=== PATIENT | female | born 1950 | race Caucasian/White ===

== ENCOUNTER 2018-03-31 11:14 | Outpatient (CLI) | payer MEDICARE, SELFPAY ==
--- NOTE | 2018-03-31 11:21 | DI.RAD.S_ITS ---
PROCEDURE: PAIN L INTERLAMINAR/CAUDAL INJ INDICATIONS: Spondylosis without myelopathy or radiculopathy, lumbosacral FINDINGS: Fluoroscopic spot filming was performed to verify placement of spinal needles at the left L5-S1 level(s), as labeled on the films. Appropriate location(s) of the needle tip(s) was confirmed by injection of iodinated contrast. Dictated by: Armando Martin M.D. on 03/31/2018 at 14:31 Approved by: Armando Martin M.D. on 03/31/2018 at 14:34
--- NOTE | 2018-03-31 11:21 | DI.RAD.S_ITS ---
PROCEDURE: XR LUMBAR SPINE MIN 4V INDICATIONS: SPONDYLOSIS WITHOUT MYELOPATHY OR RADICULOPATHY TECHNIQUE: 5 views of the lumbar spine were acquired. COMPARISON: None. FINDINGS: Bones: 5 nonrib-bearing vertebrae are present. There is mild levoscoliosis centered at L2-3 level. Grade 1 retrolisthesis is seen at L2-3 and L3-4 levels. There is also grade one anterolisthesis of L5 on S1. No vertebral body compression fractures. No suspicious bony lesions. Degenerative endplate changes throughout lumbar spine is seen with bilateral facet arthrosis at L4-5 and L5-S1 levels. Soft tissues: Overlying bowel gas pattern is normal. No suspicious soft tissue calcifications. Oblique images: No definite pars interarticularis defect is seen. No significant neural foramina narrowing. IMPRESSION: Degenerative disc disease throughout lumbar spine with likely degenerative spondylolisthesis at L2-3, L3-4 and L5-S1 levels. No definite pars interarticularis defect. No acute compression fracture. Dictated by: Balwinder Darnell M.D. on 03/31/2018 at 14:17 Approved by: Balwinder Darnell M.D. on 03/31/2018 at 14:19
[2018-03-31 11:39] VITALS: BP 134/90; PULSE 72; RESP 18; TEMP 37.1; O2SAT 97
[2018-03-31 12:09] VITALS: BP 146/90; PULSE 74; RESP 18; O2SAT 96
[2018-03-31 12:13] VITALS: BP 152/84; PULSE 72; RESP 18; O2SAT 96
[2018-03-31] MEDS: BUPIVACAINE 0.25% (PF) VIAL 2 ML INJ (12:15)
[2018-03-31] MEDS: DEXAMETHASONE 10 MG/ML VIAL 20 MG INJ (12:16)
[2018-03-31] MEDS: IOPAMIDOL 15 ML VIAL 3 ML INJ (12:16)
[2018-03-31] MEDS: methylPREDNISolone acetate 80 MG/ML VIAL INJ (12:16)
--- NOTE | 2018-03-31 12:18 | PC.NURSE ---
pt being assisted off table and to post proc area in stable condition. no sedation meds given
--- NOTE | 2018-03-31 12:20 | P.PCN_ITS ---
Procedures Date/Time Date of procedure: 03/31/18 Time of procedure: 12:19 General Procedure description: PROVIDER: Wei Yan DO Operative Note PREOP DIAGNOSIS 1. HNP WITH RADICULAR FEATURES, 2. MULTILEVEL CENTRAL STENOSIS, POST OP DIAGNOSIS 1. HNP WITH RADICULAR FEATURES, 2. MULTILEVEL CENTRAL STENOSIS, PROCEDURES 1. FLUORSCOPICALLY GUIDED CONTRAST CONTROLLED INTERLAMINAR EPIDURAL STEROID INJECTION - L5/S1 PHYSICIAN: Wei Yan DO INDICATIONS Ursula is referred by for treatment of Bilateral Foraminal Stenosis L>R LE symptoms. FINDINGS Multilevel Central Spinal Stenosis with Nerve Root Compression DESCRIPTION OF PROCEDURE Fluoroscopically guided, contrast-controlled L5/S1 translaminar epidural steroid injection. Following denial of allergy and review of potential side effects and complications, including, but not necessarily limited to, infection, allergic reaction, local tissue breakdown, temporary as well as permanent nerve injury, paralysis, stroke and possible , the patient indicated that the patient understood and agreed to proceed. An informed consent document was signed by the patient, witnessed by a nurse, and placed in the patient's chart. Additionally, other treatment options including modalities, medications, and physical therapy were reviewed with the patient. After review of previous anaesthesic history and IV conscious sedation the patient was deemed safe to proceed with todays procedure with IV conscious sedation as ASA class II designation. Safety time-out was performed to confirm patient ID, procedure to be performed and site of procedure. IV sedation was deemed unnecessary and thus not administered by the RN after DO order, the patient remained responsive to all verbal commands. In the prone position, following sterile prep and drape of the lumbar region, the L5/S1 translaminar space was identified fluoroscopically. The skin was anesthetized via a 25-gauge, 1.5-inch needle with 1% lidocaine solution. At this point, a 22-gauge short bevel spinal needle was atraumatically introduced and advanced under fluoroscopic guidance into the region of the L5/S1 translaminar space. Depth was confirmed on lateral view. Radiological data, including multiple fluoroscopic views of the lumbar spine, reveal a spinal needle at the L5/S1 translaminar space. Lateral views then show placement of the needle in the epidural space. Subsequent views show contrast material flowing superiorly and inferiorly in the epidural space. No vascular or intrathecal uptake is observed. At this point, using loss of resistance technique with saline and air, the epidural space was entered. This was confirmed following negative aspiration with injection of approximately 1.5 cc of Isovue 200, showing excellent epidural flow without vascular or intrathecal uptake. At this point, 1 cc of 1 % lidocaine solution combined with 3 cc or 20 mg of dexamethasone and 80mg Depo medrol was injected without incident. The patent tolerated the procedure without signs of symptoms of complications prior to transfer to the recovery area for further monitoring. The patient was then transferred to the recovery area where they were observed for an appropriate period of time after the injection. The patient reported a VAS score of 6 prior to the procedure and a post-procedure VAS of 0. Total Fluoroscopy Time: 11.8 seconds Total Conscious Sedation Time: 24min POST OP INSTRUCTIONS The patient was provided a Pain Log to continue to record their response to the target-specific procedure prior to follow-up visit with their referring physician. Additionally, specific post-injection care instructions and a contact number to our office were provided if concerns arise regarding possible complications associated with the procedure are suspected. Wei Yna, DO
[2018-03-31 12:25] VITALS: BP 142/78; PULSE 72; RESP 20; O2SAT 96
== END 2018-03-31 12:48 ==
LOC: RAD 11:18
PROVIDERS: PCP Family Medicine; Visit Provider Physical Medicine & Rehabilitation
DX: M51.17 Intervertebral disc disorders with radiculopathy, lumbosacral region (principal); M51.16 Intervertebral disc disorders with radiculopathy, lumbar region; M48.07 Spinal stenosis, lumbosacral region; M48.062 Spinal stenosis, lumbar region with neurogenic claudication; M47.27 Other spondylosis with radiculopathy, lumbosacral region; M43.17 Spondylolisthesis, lumbosacral region
CPT/HCPCS: 62323; 72110; J1040; J1100; J2250

== ENCOUNTER 2018-04-07 07:20 | Outpatient (CLI) | payer MEDICARE, SELFPAY ==
[2018-04-07] VITALS (10 sets, daily range): BP systolic 104–131; BP diastolic 63–92; PULSE 55–85; RESP 16–20; TEMP 37.6; O2SAT 95–99
--- NOTE | 2018-04-07 07:21 | DI.RAD.S_ITS ---
PROCEDURE: PAIN INJECT BLOOD PATCH COMPARISON: Located Within [facility], CR, XR LUMBAR SPINE MIN 4V, 03/31/2018, 11:19. INDICATIONS: Spinal Headache FINDINGS: Needle tip localization ecti intralaminar notch level leftward of midline, L5-S1. IMPRESSION: Successful needle tip localization for blood patch procedure left paramedian L5-S1 intralaminar notch dorsally. Dictated by: Richar Briseno M.D. on 04/07/2018 at 12:59 Approved by: Richar Briseno M.D. on 04/07/2018 at 13:00
[2018-04-07] MEDS: MIDAZOLAM 5 MG/5 ML VIAL IV (08:02)
[2018-04-07] MEDS: IOPAMIDOL 15 ML VIAL 3 ML INJ (08:07)
--- NOTE | 2018-04-07 08:20 | PC.NURSE ---
PT BEING TRANSPORTED LYING ON BACK TO POST PROC AREA FOR FURTHER OBS. IN STABLE CONDITION
--- NOTE | 2018-04-07 08:21 | PM.PROC.1 ---
Procedures Date/Time Date of procedure: 04/07/18 Time of procedure: 08:21 General Procedure description: PROVIDER: Wei Yan DO Operative Note PREOP DIAGNOSIS 1. SPINAL HEADACHE 2. MULTILEVEL CENTRAL STENOSIS POST OP DIAGNOSIS 1. SPINAL HEADACHE 2. MULTILEVEL CENTRAL STENOSIS PROCEDURES 1. FLUORSCOPICALLY GUIDED CONTRAST CONTROLLED EPIDURAL BLOOD PATCH PHYSICIAN: Wei Yan DO INDICATIONS Ursula is referred by Dr. Sam for treatment of Spinal Headache with underlying Bilateral Foraminal Stenosis L>R LE symptoms. FINDINGS Spinal Headache Multilevel Central Spinal Stenosis with Nerve Root Compression DESCRIPTION OF PROCEDURE Fluoroscopically guided, contrast-controlled L5/S1 Epidural Blood Patch Following denial of allergy and review of potential side effects and complications, including, but not necessarily limited to, infection, allergic reaction, local tissue breakdown, temporary as well as permanent nerve injury, paralysis, stroke and possible , the patient indicated that the patient understood and agreed to proceed. An informed consent document was signed by the patient, witnessed by a nurse, and placed in the patient's chart. Additionally, other treatment options including modalities, medications, and physical therapy were reviewed with the patient. After review of previous anaesthesic history and IV conscious sedation the patient was deemed safe to proceed with todays procedure with IV conscious sedation as ASA class II designation. Safety time-out was performed to confirm patient ID, procedure to be performed and site of procedure. IV sedation was accomplished with a combination of 4mg of Versed administered by the RN after DO order, titrated to patient comfort during the course of the procedure while the patient remained responsive to all verbal commands. In the prone position, following sterile prep and drape of the lumbar region, the L5/S1 translaminar space was identified fluoroscopically. The skin was anesthetized via a 25-gauge, 1.5-inch needle with 1% lidocaine solution. At this point, a 22-gauge short bevel spinal needle was atraumatically introduced and advanced under fluoroscopic guidance into the region of the L5/S1 translaminar space. Depth was confirmed on lateral view. Radiological data, including multiple fluoroscopic views of the lumbar spine, reveal a spinal needle at the L5/S1 translaminar space. Lateral views then show placement of the needle in the epidural space. Subsequent views show contrast material flowing superiorly and inferiorly in the epidural space. No vascular or intrathecal uptake is observed. At this point, using loss of resistance technique with saline and air, the epidural space was entered. This was confirmed following negative aspiration with injection of approximately 0.5cc of Isovue 200, showing excellent epidural flow without vascular or intrathecal uptake. At this point, 20cc of the patients blood was obtained from the IV site. This was then slowly injected into the epidural space while monitoring the patients neurological state. The patent tolerated the procedure without signs of symptoms of complications prior to transfer to the recovery area on a bed lying supine flat for further monitoring. The patient was then transferred to the recovery area where they were observed for an appropriate period of time after the injection. The patient reported a VAS score of 6 prior to the procedure and a post-procedure VAS of 2. Total Fluoroscopy Time: 11.8 seconds Total Conscious Sedation Time: 24min POST OP INSTRUCTIONS The patient was provided a Pain Log to continue to record their response to the target-specific procedure prior to follow-up visit with their referring physician. Additionally, specific post-injection care instructions and a contact number to our office were provided if concerns arise regarding possible complications associated with the procedure are suspected. Wei Yan DO Complications: none
--- NOTE | 2018-04-07 08:28 | PC.NURSE ---
received pt from Lisa GARCIA post blood patch procedure, pt verbalizing on command, able to answer my questions appropriately, her eyes are closed, resumed monitoring.
--- NOTE | 2018-04-07 09:03 | PC.NURSE ---
got pt to sit upright, she still has a headache and now she has a back ache as well. she is alert and needs met.
== END 2018-04-07 09:35 ==
LOC: RAD 07:21
PROVIDERS: PCP Family Medicine; Visit Provider Physical Medicine & Rehabilitation
DX: G97.1 Other reaction to spinal and lumbar puncture (principal); M48.07 Spinal stenosis, lumbosacral region; M48.061 Spinal stenosis, lumbar region without neurogenic claudication; M54.17 Radiculopathy, lumbosacral region
CPT/HCPCS: 62273; 77003; 99152; J2250

== ENCOUNTER 2024-03-21 09:44 | Inpatient (IN) | payer MEDICARE, SELFPAY ==
[2024-03-15 13:37] VITALS: BMI 30.8
[2024-03-21] VITALS (19 sets, daily range): BP systolic 98–188; BP diastolic 52–111; PULSE 63–97; RESP 6–19; TEMP 36.2–37; O2SAT 92–100; BMI 34.0
[2024-03-21] MEDS: LACTATED RINGERS 1,000 ML 42 ML IV ×2 (10:53→15:22)
--- NOTE | 2024-03-21 11:59 | PM.PREOP ---
Pre-operative Note Interval Note History & Physical reviewed/Exam performed by Physician: Yes Changes to H&P: No
[2024-03-21] MEDS: CEFAZOLIN 2 GM/100 ML PREMIX 100 ML IV ×2 (12:25→20:33)
--- NOTE | 2024-03-21 12:47 | SUR.OPER ---
Prone on spine table, head in foam head support, padded chest and pelvic supports, gel pad at knees, lower legs supported by pillows; nipples, genitalia and toes free of pressure, arms secured on foam padded arm boards at <90 degrees abduction. Tape over blanket at thigh secured to table.
[2024-03-21] MEDS: BUPIVACAINE LIPOSOME 266 MG/20 ML VIAL INJ (12:51)
[2024-03-21] MEDS: BUPIVACAINE 0.25% (PF) 60 ML, EPINEPHrine 0.15 MG INJ (12:52)
--- NOTE | 2024-03-21 16:06 | DI.RAD.S_ITS ---
PROCEDURE: XR LUMBAR SPINE 2-3V INDICATIONS: L4-5, L5-S1 TECHNIQUE: 2 intraoperative fluoroscopic views of the lumbar spine were acquired. COMPARISON: None. FINDINGS: Intraoperative fluoroscopic images shows posterior fusion at L4 through S1 levels with intervertebral spacer placement at L4-5 and L5-S1 levels. IMPRESSION: Fluoro guidance was provided intraoperatively for L4-5 and L5-S1 TLIF performed by ordering physician. Dictated by: Balwinder Darnell M.D. on 03/21/2024 at 16:14 Approved by: Balwinder Darnell M.D. on 03/21/2024 at 16:21
--- NOTE | 2024-03-21 16:16 | PM.OP.1 ---
Operative Date/Time/Diagnoses Date of procedure: 03/21/24 Time of procedure: 12:45 Pre-op diagnosis: 1. L4-5, L5-S1 spondylolisthesis 2. Lumbar spinal stenosis with radiculopathy with history of laminectomies Post-op diagnosis: same Procedure & Clinicians Procedure: 1. L4-5, L5-S1 Postero-lateral and posterior interbody fusion 2. L4-5, L5-S1 interbody cage placement. 3. L4-5, L5-S1 decompressive laminectomy with bilateral facetecomies 4. L4-5, L5-S1 Posterior segmental instrumentation 5. [place] of bone marrow from iliac crest 6. Utilization of microsurgical technique and operating microscope 7. Utilization of robotic assisted navigation Same procedure as scheduled: Yes Indications: Patient has been having chronic back pain and worsening lumbar radiculopathy. Patient had history of lumbar laminectomies at L4-5 L5-S1 level more than 10 years ago. Patient has L4-5 L5-S1 foraminal stenosis and anterolisthesis correlating with the patient's symptoms. Patient failed multiple conservative management with worsening pain weakness and numbness in her lower extremity. Patient has been having difficulty performing activity of daily living. After discussing risks benefits of treatment options, patient elected proceed with surgery. Surgeon: John Olivarez Subway Car Repairer: Nelsy David Click Yes if Unassisted: No Anesthesia Type: General Operative Notes Closure Type: primary Specimen(s): none sent Prosthetic devices, grafts, tissues, transplants, or devices: Globus CREO MIS screws, Rise cages Applied: catheter Estimated Blood Loss (mL): 200 Blood products transfused: none Procedure in detail: Patient was seen in the preoperative area. Risks and benefits of the surgery was discussed with the patient. Informed consent was obtained from the patient and placed in the chart. Surgical site was marked. Patient was taken to the operative room. General anesthesia was administered. Prophylactic antibiotic was given to the patient less than 30 min before the incision was made. Patient was placed into a prone position on the Jimi table. Patient's back was then prepped and draped in the sterile fashion. Time-out was performed at this time. After patient was prepped and draped, patient's PSIS was palpated and marked bilaterally. Small 1 cm incision was made over the PSIS for placement of the reference probes. Two trocar was placed into the PSIS 1 on each side. The reference probe was attached to the trocar of the reference apparatus. At this time the C-arm imaging was used to confirm AP and lateral of L4-L5, L5-S1 vertebrae and merged the C-arm imaging using the [employer] robotic navigation system with the CT of the lumbar spine. After successful merging was completed and confirmed, skin marker was used to jennyfer out the skin incision using the [employer] robotic arm. Bilateral incision was made at this time. Pre templated trajectory was used and guided using the [employer] robotic navigation system for bilateral L4, L5, S1 pedicle screw placement. This was done by using the robotic arm to guide the high-speed bur to make a cortical entry point. Next a drill was placed also using the robotic arm and guided using the navigation system drilling partially through bilateral L4, L5 and S1 pedicles. Next L4, L5, S1 pedicle screws it was pre templated and measured was placed onto the power snaker tractor driver and inserted into the pedicles bilaterally. After all 6 screws were placed C-arm imaging was taken of both AP and lateral to confirm the placement. Excellent placement of the screws were confirmed and a matched precisely with the pre planned screw placement using the navigation system. MARs retractor was inserted using [employer] guidence. Globus MARS retractors was placed inside the incision and docked onto the L4 and L5 lamina. Using microsurgical technique and operating microscope, a L4, L5 laminectomy and L4-5, L5-S1 facetectomy was performed using a Kerrison rongeur. The laminectomy and facetectomy was performed in order to decompress patient's cauda equina as well as the nerve roots exiting at the L4-5, L5-S1 level. Patient was found have severe lateral recess and neural foramen stenosis which was fully decompressed after the laminectomy facetectomy. There was significant amount of epidural scarring from a previous laminectomies at both levels. The scar tissue was carefully resected along with the laminectomy and facetectomy during the process of decompression. More than 75% of the facets were removed during the process of decompression rendering L4-5, L5-S1 level grossly unstable and required a fusion procedure at the same time. The disc space at L4-5, L5-S1 was identified, and a total diskectomy was performed at L4-5, L5-S1 level. The endplates were decorticated using a rasp and shaver. The total diskectomy and decortication was performed at L4-5, L5-S1 level in order to to accomplish a L4-5, L5-S1 fusion. The local bone from the laminectomy and facetectomy was saved for local bone grafting. After the total diskectomy and decortication was completed, Viacel bone graft material was combined with local bone that was harvested earlier. At this time, a separate skin is incision was made over the iliac crest. A Jamshidi needle was inserted into the iliac crest through a separate skin incision on the right. 5 cc of bone marrow aspiration was obtained through the separate skin incision using a Jamshidi needle from the iliac crest. The bone marrow aspiration was combined with local bone and the Viacel bone grafting material. The bone grafting material was placed into the L4-5, L5-S1 interbody space along with a expandable cage. The cage was expanded to its maximum height using the torque limiting screwdriver. The disc preparation as well as the cage insertion were also performed under navigation guidance. After the cage was placed, AP and lateral C-arm imaging was taken to confirm placement of the cage and excellent position was confirmed. Globus MARS retractor was inserted and docked onto the L4-5, L5-S1 posterolateral gutter on the right side. Using the power drill, posterior-lateral decortication was performed at L4-5, L5-S1 level until bleeding cortical bone was identified. The remaining bone grafting material was placed into the L4-5, L5-S1 posterior lateral gutter he order to accomplish posterolateral fusion at the L4-5, L5-S1 level. At this time the tulips were attached to the L4, L5, S1 pedicle screw shanks. After measuring the length of the rods, they were inserted into the tulips of the pedicle screws and locked in place using locking caps and torque limiting screwdriver bilaterally. Total 6 caps and 2 titanium rods was used in order to complete the posterior instrumentation construct. After all the hardware was placed, and confirmed with AP and lateral C-arm imaging, the wound was then irrigated with sterile normal saline and packed with Ray-Yaquelin gauze for 3 min to accomplish hemostasis. After the gauze was removed the deep fascia was closed with #1 Vicryl suture. The subcutaneous layer was closed with 2-0 Vicryl. The skin was closed with skin brayan. Patient tolerated the procedure well. There were no complications. Neuro monitoring system was used to monitor patient's neurologic status throughout entire procedure. There was no disturbance of the neural monitoring signals throughout the case. The Operation could not have been safely performed without compromising the technical result or length of the procedure, without the assistance of a skilled instructor adjunct surgical technician. The instructor adjunct surgical technician was medically necessary for proper positioning, retraction and manipulation of instruments, proper exposure, surgical preparation, and manipulation of tissue. Complications: none Post-operative Condition: stable Disposition: PACU Plan for aftercare: Admit to inpatient hospital
[2024-03-21] MEDS: HYDROMORPHONE 1 MG INJ IV ×2 (16:43→17:03)
[2024-03-21] MEDS: OXYCODONE IR 5 MG TABLET PO (16:48)
[2024-03-21] MEDS: hydrOXYzine 50 MG/ML INJ 25 MG IM (16:54)
[2024-03-21] MEDS: LACTATED RINGERS 1,000 ML 125 ML IV (20:35)
[2024-03-22 00:56] VITALS: BMI 34.0
[2024-03-22 01:40] VITALS: BP 163/97; PULSE 104; TEMP 37.1; O2SAT 97
[2024-03-22] MEDS: OXYCODONE IR 5 MG TABLET PO ×3 (02:17→18:04)
[2024-03-22] MEDS: ACETAMINOPHEN 325 MG TABLET 650 MG PO ×3 (03:13→18:05)
[2024-03-22] MEDS: HYDROMORPHONE 0.5 MG INJ IV (03:19)
[2024-03-22] MEDS: LACTATED RINGERS 1,000 ML 125 ML IV (05:17)
[2024-03-22] MEDS: PANTOPRAZOLE DR 20 MG TABLET PO (05:46)
[2024-03-22] MEDS: CEFAZOLIN 2 GM/100 ML PREMIX 100 ML IV (05:47)
[2024-03-22 06:17] LABS: Hematocrit 31.4 % (36-46); Hemoglobin 10.6 g/dL (12.0-16.0)
[2024-03-22] MEDS: OXYCODONE IR 10 MG TABLET PO ×2 (06:41→10:45)
--- NOTE | 2024-03-22 07:44 | PM.PNPO.1 ---
Subjective Subjective Date Patient Seen: 03/22/24 Time Patient Seen: 07:30 Interval history: She had difficulty having her pain under control. ? I have a low pain threshold? acquired IV medications conjunction with the oxycodone. He is not yet or physical therapy. Denies any new numbness or tingling down her legs. Pain is primarily at the surgical site. Exam Vital Signs (past 8 hours): - 03/22/24 01:40 Temperature 98.7 F Pulse Rate 104 H Blood Pressure 163/97 H Pulse Oximetry 97 Oxygen Flow Rate 2 Fraction of Inspired Oxygen 32 SaO2/FiO2 Ratio 303 Oxygen Delivery Method Nasal Cannula Oxygen Flow Rate 2 Narrative Exam Narrative: 5/5 PF, DF, EHL on bilateral lower extremities. Sensation to light touch intact throughout BLE, calves soft and compressible. Dressing clean dry and intact. SCDs on a functioning Resp Effort & Inspection: normal respiratory effort and able to speak in complete sentences Objective Labs 03/22/24 05:56 Labs: Laboratory Results - last 24 hr 03/22/24 05:56 Hgb 10.6 L Hct 31.4 L PFSH Medical History (Updated 03/15/24 @ 14:25 by Nahed Henriquez RN) Diabetes Depression HTN (hypertension) GERD (gastroesophageal reflux disease) Surgical History (Updated 03/15/24 @ 14:42 by Nahed Henriquez RN) H/O cataract extraction H/O gastric bypass H/O: hysterectomy H/O laminectomy Social History household members: spouse Smoking Status: Never smoker alcohol intake: current Assessment & Plan Post-op Postoperative Procedures: Procedures Operation Date: 03/21/24 11:45 Actual Procedure Side Surgeon p L4-5, L5-S1 TLIF with posterior instrumentation-Robot John Olivarez MD Postoperative day: 1 Postoperative plan: routine post-op care and ambulate Postoperative plan narrative: Multimodal pain control. Ambulate with physical therapy with assistive devices. SCDs on when resting in bed to prevent DVT. Patient plans on discharging to SNF due to no support at home. Time Spent With Patient Time with patient: 15-24 minutes Quality VTE Deep Vein Thrombosis/Pulmonary Embolism Present on Admission: No
[2024-03-22 09:01] VITALS: O2SAT 97
--- NOTE | 2024-03-22 09:30 | PT.IIE ---
Current Diagnoses Spondylolisthesis, lumbar region (03/21/24) Spinal stenosis, lumbar region without neurogenic claudication (03/21/24) Surgery Performed Operation Date: 03/21/24 11:45 Actual Procedures p L4-5, L5-S1 TLIF with posterior instrumentation-Robot - John Olivarez MD Surgical History (Last Updated 03/15/24 @ 14:42 by Nahed Henriquez, RN) H/O cataract extraction H/O gastric bypass H/O laminectomy H/O: hysterectomy Medical History (Last Updated 03/15/24 @ 14:25 by Nahed Henriquez, RN) Depression Diabetes GERD (gastroesophageal reflux disease) HTN (hypertension) Physical Therapy Inpatient Evaluation/Re-Eval M1 PT/OT-IP Prior Functional Status Start: 03/22/24 12:02 Freq: NEEDED Status: Active Protocol: Document 03/22/24 09:30 AB (Rec: 03/22/24 12:17 AB [id number]) Medical Review Prior Functional Status Medical History Reviewed Yes Communication able to make needs known Mobility and Gait pt stated that she was modified independent with all mobilities and ambulation without AD Social History Household Members spouse Living Arrangements House Number of Floors (Floors) Two Floors Number of Stairs To Enter/Railing? pt stays on the main level of the house 5 steps without rails to enter from the front; 3 steps without rails to get in from the back door Home Environment Standard Height Toilet,Walk in Shower Home Equipment Front Wheel Walker,Four Wheel Walker,Tub Transfer Bench, Shower Seat with Backrest,Hand Held Shower,Grab Bars In Shower Additional Social History Comment pt has a toilet safety frame spouse stated that he cannot assist pt at home M2 PT-IP Current Condition Start: 03/22/24 12:02 Freq: NEEDED Status: Active Protocol: Document 03/22/24 09:30 AB (Rec: 03/22/24 12:17 AB [id number]) Physical Therapy Current Condition Current Condition Evaluation Date 03/22/24 Treatment Diagnosis s/p L4-5, L5S1 TLIF; difficulty in walking Onset Date 03/21/24 M3 PT-IP Subjective Start: 03/22/24 12:02 Freq: NEEDED Status: Active Protocol: Document 03/22/24 09:30 AB (Rec: 03/22/24 12:17 AB [id number]) Subjective Physical Therapy Visit Type Type Initial Evaluation Visit Start Time 09:30 Visit Stop Time 10:15 Number of PHARMACY HELPER Visits 0 Physical Therapy Visit Comments Patient Comments agreeable to do PT; c/o increase back pain Therapy Pain Assessment Pain When Pain Assessed At Rest Pain Present Pain Present Pain Reported Location back Intensity 9 Scale Used 10/10 with movement Pain Behaviors Facial Grimacing,Guarding, Holding Area Pain Management Techniques Apply Cold,Modification of Treatment,Re-positioning, Timing of Activity with Medications M4 PT-IP Mobility and Gait Start: 03/22/24 12:02 Freq: NEEDED Status: Active Protocol: Document 03/22/24 09:30 AB (Rec: 03/22/24 12:17 AB [id number]) PT-Bed Mobility Assessment Rolling Type of Rolling Log Rolling Level of Assist Maximal Assistance Supine to Sit Supine to Sit Maximum Assistance Scooting Scooting to Edge of Bed Maximum Assistance PT-Transfer Assessment Sit to and From Stand Sit to and from Stand Maximum Assistance,2 Person Assistance,Use of Upper Extremities Equipment Transfer Assistive Device Gait Belt,Front Wheeled Walker Orthotic/Prosthetic Devices or Brace: No Transfers Transfer Destination Chair Transfer Technique Stand Step Pivot Transfer Ability Level of Assist Maximum Assistance,2 Person Assistance,Use of Upper Extremities Comments Mobility Comments pt supine in bed and spouse in room. obtained PLOF and home set up. spouse provided most of the info. pt with confusion. spouse stated that pt has Alzheimer's dementia. post op folder provided and reviewed with pt. educated pt and spouse regarding pt's back precautions and log roll bed mobility. pt completed log roll supine to sit max A and max cues. HOB elevated ~ 20 deg and pt used bed rail to assist. pt was able to sit on EOB CGA. completed sit to stand max A x 2 and max cues. attempted x 2 reps and pt needing to sit back on EOB with c/o increase back pain. pt with confusion and can be impulsive needing max cues with all tasks. pt completed step transfer to chair using FWW max A x 2 and max cues. max A to stabilize LLE to prevent from buckling. positioned pt on the chair. ice pack provided. call light and table placed within reach. Gait Assessment Comments Gait Comments unable at this time PT-Balance Assessment Sitting Balance and Reactions Static Sitting Balance Ability Fair Dynamic Sitting Balance Ability Poor Standing Balance and Reactions Static Standing Balance Ability Poor Dynamic Standing Balance Ability Poor Device Used FWW M5 PT-IP Objective Assessments Start: 03/22/24 12:02 Freq: NEEDED Status: Active Protocol: Document 03/22/24 09:30 AB (Rec: 03/22/24 12:17 AB [id number]) Orientation Orientation/Cognition Level of Alertness Confusional State Orientation Name Language Function Ability Hard of Hearing Safety Awareness Decreased Safety Awareness Memory Description Short Term Impaired,Mcfp Impaired Gross Range of Motion Lower Extremity ROM Assessment Within Functional Limits Strength Lower Extremity Strength Assessment Left Impaired Hip 2+/5 Knee 3-/5 Sensation Assessment Sensation Sensation Description Numbness Comments Sensation Comments B feet numbness per pt Muscle Tone Muscle Tone WNL Yes M6 PT-IP Treatment Start: 03/22/24 12:02 Freq: NEEDED Status: Active Protocol: Document 03/22/24 09:30 AB (Rec: 03/22/24 12:17 AB [id number]) Physical Therapy Treatment Education Education Provided Precautions,Post-Op Packet, Safety M7 PT-IP Assessment and Plan Start: 03/22/24 12:02 Freq: NEEDED Status: Active Protocol: Document 03/22/24 09:30 AB (Rec: 03/22/24 12:17 AB [id number]) PT Summary Assessment and Plan Potential Status of Condition at Evaluation Evolving Summary Impairments Pain,ROM,Strength,Balance, Coordination,Sensation,Tone, Cognition,Bed Mobility, Transfers,Gait,Activity Tolerance Assessment Summary pt is a 74 y/o F s/p L4-5, L5S1 TLIF POD 1. pt requiring max A x 2 for step transfer using FWW and needing max A to stabilize L knee to prevent from buckling. pt will require SNF rehab to improve overall strength and function. Goals Bed Mobility Goal Minimal Assistance Transfer Goal Minimal Assistance,Front Wheeled Walker Gait Goal Minimal Assistance,Front Wheel Walker Gait Distance 25 Other Goals improve bed mobility, transfers, ambulation using FWW SBA ~ 150 ft up/down 3 steps without rails with AD CGA Days to Meet Goals 10 Frequency of Treatment Other frequency 1-2x/day Treatment Plan Physical Therapy Treatment Plan Bed Mobility Training,Transfer Training,Gait Training, Therapeutic Exercise,Balance Retraining,Post Op Education, Discharge Planning,Hot or Cold Pack,Neuromuscular Re-ed, Coordination Retraining,Manual Therapy Precautions Lumbar Precautions Log Roll,No Twisting,Limit Bending,Lifting Restriction of 10 lbs,Gait Belt above Incisional Area Recommendations To Nursing Amount of Assist Needed Mechanical Lift Discharge Recommendations PT Discharge Recommendations SNF Rehab Transportation Needs at Discharge Wheelchair/Cabulance
[2024-03-22] MEDS: DOCUSATE 100 MG CAPSULE PO ×2 (09:55→20:15)
[2024-03-22] MEDS: DULOXETINE 30 MG CAPSULE 60 MG PO (09:55)
[2024-03-22] MEDS: LOSARTAN 50 MG TABLET PO (09:55)
[2024-03-22] MEDS: PREGABALIN 75 MG CAPSULE PO ×2 (09:55→20:16)
[2024-03-22] MEDS: hydroCHLOROthiazide 25 MG TABLET 12.5 MG PO (09:57)
--- NOTE | 2024-03-22 11:18 | OT.IP.EVAL ---
Addendum entered and electronically signed by Lindsey Kay OT 03/22/24 12:41: esign Original Note: Current Diagnoses Spondylolisthesis, lumbar region (03/21/24) Spinal stenosis, lumbar region without neurogenic claudication (03/21/24) Surgery Performed Operation Date: 03/21/24 11:45 Actual Procedures p L4-5, L5-S1 TLIF with posterior instrumentation-Robot - John Olivarez MD Past Medical History (Last Updated 03/15/24 @ 14:25 by Nahed Henriquez, RN) Depression Diabetes GERD (gastroesophageal reflux disease) HTN (hypertension) Surgical History (Last Updated 03/15/24 @ 14:42 by Nahed Henriquez, RADHA) H/O cataract extraction H/O gastric bypass H/O laminectomy H/O: hysterectomy Occupational Therapy Inpatient Evaluation/Re-Eval M1 PT/OT-IP Prior Functional Status Start: 03/22/24 12:02 Freq: NEEDED Status: Active Protocol: Document 03/22/24 12:26 [facility] (Rec: 03/22/24 12:39 [facility] [id number]) Medical Review Prior Functional Status Medical History Reviewed Yes Communication able to make needs known Mobility and Gait pt stated that she was modified independent with all mobilities and ambulation without AD Activities of Daily Living and IADL's Pt states able to do all ADL prior but had pain. Social History Household Members spouse Living Arrangements House Number of Floors (Floors) Two Floors Number of Stairs To Enter/Railing? pt stays on the main level of the house 5 steps without rails to enter from the front; 3 steps without rails to get in from the back door Home Environment Standard Height Toilet,Walk in Shower Home Equipment Front Wheel Walker,Four Wheel Walker,Tub Transfer Bench, Shower Seat with Backrest,Hand Held Shower,Grab Bars In Shower Additional Social History Comment pt has a toilet safety frame spouse stated that he cannot assist pt at home M2 OT-IP Current Condition Start: 03/22/24 12:26 Freq: Status: Active Protocol: Document 03/22/24 12:26 [facility] (Rec: 03/22/24 12:39 [facility] [id number]) Occupational Therapy Current Condition Current Condition Evaluation Date 03/22/24 Treatment Diagnosis S/P L4-5, L5-S1 TLIF Diagnosis Onset Date 03/21/24 Post Operative Precautions Lumbar Precautions Log Roll,No Twisting,Limit Bending,Lifting Restriction of 10 lbs,Gait Belt above Incisional Area M3 OT- IP Subjective and Pain Start: 03/22/24 12:26 Freq: Status: Active Protocol: Document 03/22/24 12:26 [facility] (Rec: 03/22/24 12:39 [facility] [id number]) OT- Subjective Occupational Therapy Visit Type Type Initial Evaluation Visit Start Time 10:48 Visit Stop Time 11:18 Occupational Therapy Visit Comments Patient Comments Pt wanting to get back to bed as in too much pain. Patient/Caregiver Goals To go to skilled rehab. OT Pain Assessment Pain When Pain Assessed At Rest Pain Present Pain Present Pain Reported Location back Intensity 10 M4 OT- IP ADL's Start: 03/22/24 12:26 Freq: Status: Active Protocol: Document 03/22/24 12:26 [facility] (Rec: 03/22/24 12:39 [facility] [id number]) OT [id number] Comments OT Self-Feeding Comments Not at meal time. OT ADL-Grooming Comments OT Grooming Comments Not performed. OT ADL-Oral Care Comments Oral Care Comments Not performed. OT ADL-Dressing Comments OT Dressing Comments Dependent for LB dressing at this time. OT ADL-Toileting General Evaluation Toileting Ability Total Assistance Comments OT Toileting Comments Roldan in place. OT ADL-Bathing Comments OT Bathing Comments Sponge bath more appropriate at this time. M5 OT- IP IADL's Start: 03/22/24 12:26 Freq: Status: Active Protocol: Document 03/22/24 12:26 [facility] (Rec: 03/22/24 12:39 [facility] [id number]) OT-Instrumental Activities of Daily Living Home Safety Awareness Home Safety Comments Pt has dementia per and that he assist with IADL needs. Medication Management Medication Management Caregiver Administers Money Management Money Management Caregiver Provides Assistance Meal Preparation Meal Preparation Caregiver Provides Assist Senior Network Administrator Senior Network Administrator Caregiver Provides Assist M6 OT- IP Functional Cognition Start: 03/22/24 12:26 Freq: Status: Active Protocol: Document 03/22/24 12:26 [facility] (Rec: 03/22/24 12:39 [facility] [id number]) Cognitive Factors Limiting Selfcare Function Cognitive Ability Level of Alertness Confusional State Patient Orientation Name Attention Span Ability Capable of Focused Attention, Unable to Sustain Attention Ability to Follow Commands Able to Follow One Step Commands with Increased Time, Able to Follow One Step Commands with Repetition Memory Description Short Term Impaired,Halfway Impaired Cognitive Comments Cognitive Assessment Comments Pt not able to recall her back precautions and at this time just insistent on going back to bed as in lots of pain . However able to distract pt by listening to music and taking about her dog. OT- Vision and Hearing OT- Hearing Assessment OT- Hearing Assessment WFL OT- Vision Assessment Vision Assessment Comments Pt wears glasses. M7 OT- IP Mobility and Balance Start: 03/22/24 12:26 Freq: Status: Active Protocol: Document 03/22/24 12:26 [facility] (Rec: 03/22/24 12:39 [facility] [id number]) OT- Bed Mobility Assessment Sit to Supine Sit to Supine Assist Total Assistance,2 Person Assistance OT-Transfer Assessment Transfers Transfer Ability Total Assistance,2 Person Assistance Technique Transfer Destination Bed,Chair Transfer Technique Mechanical Lift Comments Mobility Comments Use of mechanical lift back to bed. Pt has difficulty to move and lift her LLE at this time. OT- Balance Assessment Sitting Balance and Reactions Static Sitting Balance Ability Fair Dynamic Sitting Balance Ability Poor M8 OT- IP Objective Assessments Start: 03/22/24 12:26 Freq: Status: Active Protocol: Document 03/22/24 12:26 [facility] (Rec: 03/22/24 12:39 [facility] [id number]) OT Gross Range of Motion Upper Extremity Range of Motion Assessment Within Functional Limits OT Strength Upper Extremity Strength Assessment Within Functional Limits M9 OT- IP Assessment and Plan Start: 03/22/24 12:26 Freq: Status: Active Protocol: Document 03/22/24 12:26 [facility] (Rec: 03/22/24 12:39 [facility] [id number]) OT Summary Assessment and Plan Potential Rehabilitation Potential Fair Analytic Complexity at Evaluation Low Summary OT Impairments Pain,Range of Motion,Strength, Balance,Functional Cognition, Functional Mobility,Self- Feeding,Grooming,Dressing, Toileting,Bathing,Toilet Transfers,Shower Transfers, Activity Tolerance Progress Towards Goals Slow Progress due to Pain,Slow Progress due to Medical Issues,Slow Progress due to Activity Tolerance,Slow Progress due to Cognition Assessment Summary Pt LOW complexity and main barriers are steps, pain, and decreased ability to recall her back precautions. Pt has dementia per . AT this time due to LLE weakness, needing use fo the jj lift for transfers. Pt to go to skilled rehab when medically stable. Goals Self-Feeding Goal Standby Assistance Grooming Goal Standby Assistance Dressing Goal Moderate Assistance Toileting Goal Moderate Assistance Bathing Goal Moderate Assistance Toilet Transfer Goal Minimal Assistance Shower Transfer Goal Moderate Assistance Days to Meet Goals 25 Frequency of Treatment Other frequency 5x/week Treatment Plan Other Treatment Recommendations and Next Transfer [place] [facility] MAX AX 2 Treatment Focus with FWW. Discharge Recommendations OT Discharge Recommendations SNF Rehab Transportation Needs at Discharge Wheelchair/Cabulance
--- NOTE | 2024-03-22 13:05 | PT.IPTN ---
Current Diagnoses Spondylolisthesis, lumbar region (03/21/24) Spinal stenosis, lumbar region without neurogenic claudication (03/21/24) Surgery Performed Operation Date: 03/21/24 11:45 Actual Procedures p L4-5, L5-S1 TLIF with posterior instrumentation-Robot - John Olivarez MD Physical Therapy Treatment Note M2 PT-IP Current Condition Start: 03/22/24 12:02 Freq: NEEDED Status: Active Protocol: Document 03/22/24 09:30 AB (Rec: 03/22/24 12:17 AB [id number]) Physical Therapy Current Condition Current Condition Evaluation Date 03/22/24 Treatment Diagnosis s/p L4-5, L5S1 TLIF; difficulty in walking Onset Date 03/21/24 M3 PT-IP Subjective Start: 03/22/24 12:02 Freq: NEEDED Status: Active Protocol: Document 03/22/24 13:05 AB (Rec: 03/22/24 15:54 AB [id number]) Subjective Physical Therapy Visit Type Type Treatment Note Visit Start Time 13:05 Visit Stop Time 13:45 Number of PROMOTIONAL MARKETING AGENT Visits 0 Physical Therapy Visit Comments Patient Comments requesting to use the toilet Therapy Pain Assessment Pain When Pain Assessed At Rest Pain Present Pain Present Pain Reported Location back Intensity 5 Scale Used Numeric (0 - 10) Pain Behaviors Guarding,Wincing Pain Management Techniques Distraction,Modification of Treatment,Re-positioning, Timing of Activity with Medications M4 PT-IP Mobility and Gait Start: 03/22/24 12:02 Freq: NEEDED Status: Active Protocol: Document 03/22/24 13:05 AB (Rec: 03/22/24 15:54 AB [id number]) PT-Bed Mobility Assessment Rolling Type of Rolling Log Rolling Level of Assist Maximal Assistance Supine to Sit Supine to Sit Maximum Assistance,Head of Bed Elevated,Bedrails PT-Transfer Assessment Sit to and From Stand Sit to and from Stand Maximum Assistance,1 Person Assistance,2 Person Assistance ,Use of Upper Extremities Equipment Transfer Assistive Device Gait Belt,Front Wheeled Walker Orthotic/Prosthetic Devices or Brace: No Transfers Transfer Destination Bedside Commode Transfer Technique ambulated Transfer Ability Level of Assist Maximum Assistance,1 Person Assistance,2 Person Assistance ,Use of Upper Extremities Comments Mobility Comments pt supine in bed and agreeable to do PT. reviewed back precautions with pt. pt with memory issues and need repetitions to recall precautions. completed log roll bed mobility max A and max cues. pt stated that she needs to use the toilet. pt with manriquez catheter on and stated that she still wants to sit on the toilet. completed sit to stand max A x 1-2 and max cues. pt initiated ambulated towards the toilet using FWW max A x 1-2 and max cues ~ 3ft. increase unsteadiness and needed to sit down. placed bedside commode behind pt. pt completed sit to stand from bedside commode max A x 2 and max cues. ambulated to the chair using FWW ~ 3 ft max A x 2 and max cues. positioned pt on the chair. set up for lunch. call light next to pt. informed nurse that pt needs a chair alarm. also informed nurse regarding pt's mobility assistance. Gait Assessment Gait Gait Assistance Required: Maximum Assistance,1 Person Assist,2 Person Assist Distance (Feet) 3 Able to Maintain Weight Bearing Status Yes During Gait Assistive Devices Assistive Device Gait Belt,Front Wheeled Walker Orthotic/Prosthetic Devices or Brace: No Gait Deviations General Gait Pattern Antalgic,Decreased Stride Length,Decreased Feet Clearance,Step-to Gait Factors Limiting Gait Function Factors Limiting Gait Function Decreased Activity Tolerance, Decreased Strength,Difficulty Following Directions,Limited Range of Motion,Pain,Poor Balance,Poor Safety Awareness M5 PT-IP Objective Assessments Start: 03/22/24 12:02 Freq: NEEDED Status: Active Protocol: Document 03/22/24 09:30 AB (Rec: 03/22/24 12:17 AB [id number]) Orientation Orientation/Cognition Level of Alertness Confusional State Orientation Name Language Function Ability Hard of Hearing Safety Awareness Decreased Safety Awareness Memory Description Short Term Impaired,Mcfp Impaired Gross Range of Motion Lower Extremity ROM Assessment Within Functional Limits Strength Lower Extremity Strength Assessment Left Impaired Hip 2+/5 Knee 3-/5 Sensation Assessment Sensation Sensation Description Numbness Comments Sensation Comments B feet numbness per pt Muscle Tone Muscle Tone WNL Yes M6 PT-IP Treatment Start: 03/22/24 12:02 Freq: NEEDED Status: Active Protocol: Document 03/22/24 13:05 AB (Rec: 03/22/24 15:54 AB [id number]) Physical Therapy Treatment Education Education Provided Precautions,Safety M7 PT-IP Assessment and Plan Start: 03/22/24 12:02 Freq: NEEDED Status: Active Protocol: Document 03/22/24 13:05 AB (Rec: 03/22/24 15:54 AB [id number]) PT Summary Assessment and Plan Potential Rehabilitation Potential Fair Summary Impairments Pain,ROM,Strength,Balance, Coordination,Sensation,Tone, Cognition,Bed Mobility, Transfers,Gait,Activity Tolerance Progress Towards Goals Slow Progress due to Pain,Slow Progress due to Activity Tolerance,Slow Progress - Other Assessment Summary pt progressing slowly with mobility and able to take a few steps using FWW max A x 1- 2 and max cues. pt needing more assistance of max A x 2 towards end of ambulation. pt will continue to use mechanical lift for transfers with nursing staff for safety. pt will require SNF rehab to improve strength and mobility . will continue to assess. Goals Bed Mobility Goal Minimal Assistance Transfer Goal Minimal Assistance,Front Wheeled Walker Gait Goal Minimal Assistance,Front Wheel Walker Gait Distance 25 Other Goals improve bed mobility, transfers, ambulation using FWW SBA ~ 150 ft up/down 3 steps without rails with AD CGA Days to Meet Goals 10 Frequency of Treatment Frequency Of Treatment Twice a Day Treatment Plan Physical Therapy Treatment Plan Bed Mobility Training,Transfer Training,Gait Training, Therapeutic Exercise,Balance Retraining,Post Op Education, Discharge Planning,Hot or Cold Pack,Neuromuscular Re-ed, Coordination Retraining,Manual Therapy Precautions Lumbar Precautions Log Roll,No Twisting,Limit Bending,Lifting Restriction of 10 lbs,Gait Belt above Incisional Area Recommendations To Nursing Amount of Assist Needed Mechanical Lift Discharge Recommendations PT Discharge Recommendations SNF Rehab Transportation Needs at Discharge Wheelchair/Cabulance
--- NOTE | 2024-03-22 15:04 | CM.DANOTE ---
Initial DCP Assessment Visit Note Reviewed EMR and team rounds for status updates. Met with pt at bedside to introduce self and role. 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 Preference is [facility]. Sent referral to this afternoon. Pt lives modified independently at baseline with her in their own home in [place], her dtr, Tessa is also strongly involved in her care coordination and home support needs. Facility will transport at d/c. Payor: Medicare Attending: Dr. Olivarez Pt is a 74 year-old F post-op day 1 from a lumbar laminectomy surgery. She has a hx of lower back pain that radiates down her left leg. She has tried conservative treatments such as tylenol and exercise modification for the last 3-years with no relief, despite having had a recent injection. She was able to begin working with therapies today, made some progress but still needed a mechanical lift to get back into bed after due to pain. Spoke with dtrGifty, and updated her re: pt's status and plan for [facility]. DCP will continue to follow and assist with transition to SNF rehab and any other evolving needs prior to d/c. Discharge Planning/Care Management CM Discharge Assessment Start: 03/22/24 14:58 Freq: Status: Active Protocol: Document 03/22/24 14:59 DPL (Rec: 03/22/24 15:04 DPL [id number]) Discharge Planning Assessment Assigned Telecom Assistant GURWINDER Zimmerman Advance Directives? Yes Advance Directives on File No History Provided By Patient,Family Member,Medical Record Expected Length of Stay 3 Prior Living Arrangements House Household Members spouse Type of transporation used prior to Drives own vehicle admit Independent with ADL's No: modified independent with a walker Is patient alert and oriented? Yes: yes, but has early alzheimer's dementia Needs Assistance With Managing Medications,Home Chores / Shopping Caregiver for Another No DME Already Rented / Owned Bath Bench,Elevated Toilet Seat,FWW / Walker Comment 4WW Patient/Family Preference Shelter Facility Barriers to Discharge No Discharge Plan Shelter Facility Community Services Physical Therapy,Occupational Therapy,Home Health Aid Transportation Arrangement Facility Referrals Initiated Shelter If patient plan is SNF: Has PASSR been No completed? Inpatient Status as of 03/21/24 Medicare Choice List Provided Yes Medicare choice list reviewed on patient electronic tablet with Whiteboard Updated in Patient Room with Yes name and ext. # of Telecom Assistant Review Status In Process Please Provide Date Initial DC 03/22/24 Assessment Was Performed Pre-Anesthesia Assessment Start: 03/15/24 13:37 Freq: Status: Active Protocol: Document 03/15/24 13:37 LB (Rec: 03/15/24 14:44 LB [id number]) Pre-Anesthesia Assessment PAC Comment 03/15/24 Phone assessment. Patient Information Reviewed Via Phone Assessment Assessment Completed With Patient Diagnostic Results BMP/CMP,CBC,EKG Comment 12/25/23 Outside labs and EKG. Primary Care Provider Douglas Sam Specialist Seen Orthopedist,Other Primary Language Salvadorean Preferred Language Salvadorean Technical Services Consultant Required No Height 160.02 cm Weight 78.925 kg Body Mass Index (BMI) 30.8 Hearing Ability Normal Visual Assist Glasses Dentition Type Teeth, Natural Present Barriers to Learning Memory Other Aids No Hx Anesthesia Reactions No Hx Family Anesthesia Reaction No Hx Malignant Hyperthermia No Hx Blood Transfusions No Anesthesia Review Requested No Drag Out Man No alcohol intake current alcohol intake frequency a few times a month Smoking Status Never smoker Substance Use Type does not use Pain Present Pain Reported Comment Back, down left leg. Musculoskeletal Symptoms Abnormal Gait,Back Pain, Difficulty Walking,Radiating Pain into Limb History of Falling (Recent or History of No ) Patient is completely paralyzed or No completely immobile Prosthesis or Orthotic Device Front Wheel Walker Mental Status Oriented to own ability Comment will bring walker. Is patient on oxygen? No Does patient have CALDERÓN/SOB No Hx Sleep Apnea No CPAP/BIPAP use not prescribed Currently Taking a Beta Roxanne No Can You Climb a Flight of Stairs Without Yes SOB Hx Chest Pain No Hx SOB No Hx Syncope or Dizziness Yes: equilibrium problems Anti-Coagulant Therapy No Has a Apprentice Carpenter No Cardiac Testing No Hx Pacemaker/ICD No Gastrointestinal Symptoms Diarrhea,Reflux Diabetes Yes HgbA1C 5.0 Date 12/25/23 Patient No Lactating No Hx Drug Resistant Organism No Presence of External or Internal Medical Yes: back hardware. Devices Have you had any close contact with No: Pt in [place] 02/21/24-10/ someone diagnosed with COVID-19? 11/22 Are you experiencing any of these Cough symptoms? Marital Status Lives With spouse Current Living Arrangements House Number of Floors (Floors) Two Floors Number of Stairs To Enter/Railing? 4 stairs without railing to enter. Support System Spouse Does the Patient Have Assistance After Yes Surgery Patient Discharge Plan Description Return Home Emergency Contact Name Nils Harper - Emergency Contact Advance Directives? Yes Advance Directives on File No Requested Patient Bring Advanced Yes Directives DOS Power of Beef Grinder Name Nils Harper - Power of Beef Grinder PAC Instructions Assistance for 24 hours post- op,Durable medical equipment, Medications to take/avoid, Nasal antibiotic,No ETOH/ petroleum product on skin DOS, NPO,Post-op transportation,Pre -surgical wash,Sensory aids, Sturdy shoes/comfortable clothes,Do not bring valuables and remove jewelry
--- NOTE | 2024-03-22 17:45 | PM.CN ---
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 Levels of L4-L5 and L5-S1. The patient was had hypertension in the postoperative phase. She does take chronic blood pressure medications. She notes her pain is fairly well controlled today. She was given her baseline medications which include I losartan-hydrochlorothiazide 80396.5 mg. This was substituted for losartan 50 and hydrochlorothiazide 12.5 here. The patient denies any chest pain, or dyspnea. No headache. She was unsure what her blood pressure runs at home. She has been dealing with lower back pain for the past several years and has had to use a walker. She also had chronic radicular symptoms including radiation of pain to the right hip and upper inner thigh. She denies any confusion today. She apparently received a dose of Narcan in the postoperative phase. She was somewhat groggy when I am talking to her but appears to be doing well otherwise. She denies history of alcohol use and does not smoke. Meds Home Medications and Allergies Home Medications Medication Instructions Recorded Confirmed Type duloxetine 60 mg capsule,delayed 60 mg PO DAILY 03/19/18 03/21/24 History release ibuprofen 200 mg tablet 400 mg PO QID PRN Pain, Moderate 03/19/18 03/21/24 History lorazepam 1 mg tablet 1 mg PO BEDTIME PRN Insomnia 03/19/18 03/21/24 History omeprazole 20 mg capsule,delayed 20 mg PO DAILY 03/19/18 03/21/24 History release trazodone 150 mg tablet 200 mg PO BEDTIME 03/19/18 03/21/24 History acetaminophen 500 mg tablet 1,000 mg PO TID 03/15/24 03/21/24 History irbesartan 150 1 tab PO DAILY 03/15/24 03/21/24 History mg-hydrochlorothiazide 12.5 mg tablet pregabalin 75 mg capsule 75 mg PO BID 03/15/24 03/21/24 History Allergies Allergy/AdvReac Type Severity Reaction Status Date / Time codeine AdvReac Mild Abdominal Verified 03/21/24 10:35 Pain Review of Systems Review of Systems Narrative: She denies any difficulty with chest pain, palpitations, or headache. All else reviewed and otherwise unremarkable. Exam Vital Signs (past 8 hours): Fraction of Inspired Oxygen 24 SaO2/FiO2 Ratio 404 Oxygen Delivery Method Nasal Cannula Oxygen Flow Rate 2 Narrative Exam Narrative: NAD, alert and oriented, fluent speech, calm. She was slightly slow to answer questions but states she was woke up. Normocephalic skull, EOMI, anicteric sclera, symmetric pupils. Oropharynx unremarkable, no droop. Neck supple, midline trachea, no adenopathy. Lungs clear, normal rate and effort. Heart regular, no murmur gallop or rub. Abdomen is soft, non distended and non tender. Extremities are free of edema. Skin is free of rash or lesions. Joints are not swollen or deformed. Judgment appears to be normal. Back not examined. Objective Labs 03/22/24 05:56 Labs: Laboratory Results - last 24 hr 03/22/24 05:56 Hgb 10.6 L Hct 31.4 L PFSH Medical History Diabetes Depression HTN (hypertension) GERD (gastroesophageal reflux disease) Surgical History H/O cataract extraction H/O gastric bypass H/O: hysterectomy H/O laminectomy Social History marital status: household members: spouse Tobacco & Substance Use Smoking Status: Never smoker alcohol intake: current Assessment & Plan Assessment & Plan narrative: 1. Hypertension, uncontrolled. Present on admission and active. 2. Depression, present on admission and stable. 3. Lumbar spinal stenosis, status post decompression and fusion. Active. Plan: -monitor blood pressure -add amlodipine 5 mg daily, start now. -monitor mental status. -standard postoperative precautions. Time-Based Coding :: 35 min spent with patient and on the chart (including review of chart, obtaining history, exam, reviewing outside data, placing orders, documenting exam and treatment plan, and counseling patient) on 03/22.
[2024-03-22 18:00] VITALS: BP 130/70; PULSE 90
[2024-03-22] MEDS: AMLODIPINE 5 MG TABLET PO (18:04)
[2024-03-22 20:00] VITALS: BP 116/70; PULSE 93; RESP 12; TEMP 36.4; O2SAT 88
[2024-03-22] MEDS: SENNOSIDES 8.6 MG TABLET 17.2 MG PO (20:16)
[2024-03-22] MEDS: TRAZODONE 50 MG TABLET 200 MG PO (20:16)
[2024-03-23] MEDS: OXYCODONE IR 5 MG TABLET PO ×3 (03:14→13:50)
[2024-03-23] MEDS: HYDROMORPHONE 0.5 MG INJ IV (04:44)
[2024-03-23] MEDS: PANTOPRAZOLE DR 20 MG TABLET PO (06:00)
--- NOTE | 2024-03-23 06:43 | PM.PNPO.1 ---
Subjective Subjective Date Patient Seen: 03/23/24 Time Patient Seen: 06:44 Interval history: Ms Harper was sleeping on my visit but awakened easily to voice. She c/o low back pain. She is eating without difficulty and her Manriquez catheter is still in place. PT is recommending SNF; per CM notes, plan is for [facility]. I asked Dr Olmos to see the pt last night after report from anesthesia of pt needing narcan in PACU as well as hypertension, tachycardia, and need for supplemental oxygen throughout the day yesterday. He kindly reviewed her history and added amlodipine for BP control. She was 120s/70s on my visit this morning. I took off her NC and she remained w/ O2 sats of 94-96% while we talked; I left her NC off. Exam Vital Signs (past 8 hours): - 03/23/24 03:28 Oxygen Delivery Method Nasal Cannula Oxygen Flow Rate 1 Fraction of Inspired Oxygen 24 Fraction of Inspired Oxygen 24 SaO2/FiO2 Ratio 404 Oxygen Delivery Method Nasal Cannula Oxygen Flow Rate 1 Narrative Exam Narrative: 5/5 strength in hip flexors, quadriceps, hamstrings, DF, PF, EHL bilaterally. Sensation to light touch intact throughout BLE. Calves soft and compressible. Low back dressing placed intraoperatively is CDI. Objective Labs 03/22/24 05:56 PFSH Medical History Diabetes Depression HTN (hypertension) GERD (gastroesophageal reflux disease) Surgical History H/O cataract extraction H/O gastric bypass H/O: hysterectomy H/O laminectomy Social History marital status: household members: spouse Smoking Status: Never smoker alcohol intake: current Assessment & Plan Post-op Assessment and plan (1) S/P lumbar fusion: Assessment and Plan narrative: 1) Remove manriquez catheter. 2) Continue work w/ PT. 3) D/c'd oxycodone 10mg and hydromorphone. Continue oxycodone 5mg, start cyclobenzaprine 5mg. 4) Appreciate hospitalist help. 5) Plan for d/c to [facility] tomorrow. Postoperative Procedures: Procedures Operation Date: 03/21/24 11:45 Actual Procedure Side Surgeon p L4-5, L5-S1 TLIF with posterior instrumentation-Robot John Olivarez MD Postoperative day: 2 Quality VTE Deep Vein Thrombosis/Pulmonary Embolism Present on Admission: No
[2024-03-23 08:00] VITALS: BP 115/65; PULSE 90; RESP 16; TEMP 37.7; O2SAT 93
--- NOTE | 2024-03-23 08:02 | P.PN_ITS ---
Subjective Subjective Interval history: Summary: Status post fusion for lumbar stenosis. Was hypertensive in the postoperative. She has a history of hypertension. Subjective: She was a little groggy today and was having a lot of pain earlier. She got some pain medication and became a little confused after that. She did okay overnight. She denies any dyspnea. Her blood pressures improved. Exam Vital Signs (past 8 hours): - 03/23/24 03:28 Oxygen Delivery Method Nasal Cannula Oxygen Flow Rate 1 Fraction of Inspired Oxygen 24 Fraction of Inspired Oxygen 24 SaO2/FiO2 Ratio 404 Oxygen Delivery Method Nasal Cannula Oxygen Flow Rate 1 Narrative Exam Narrative: NAD, alert and oriented. Fluent speech. She does make some statements that do not make sense. Lungs are clear, normal rate and effort. Heart is regular, no murmur gallop or rub. Abdomen is soft, non distended. Extremities are free of edema. Objective Labs 03/22/24 05:56 03/23/24 08:41 PFS Medical History Diabetes Depression HTN (hypertension) GERD (gastroesophageal reflux disease) Surgical History H/O cataract extraction H/O gastric bypass H/O: hysterectomy H/O laminectomy Social History marital status: household members: spouse Smoking Status: Never smoker alcohol intake: current Assessment & Plan Assessment & Plan narrative: 1. Hypertension, with improved control. Present on admission and active. 2. Depression, present on admission and stable. 3. Lumbar spinal stenosis, status post decompression and fusion. Active. 4. Medication-related encephalopathy, new and active. Plan: -monitor blood pressure, continue amlodipine and other agents. BP today is 115/65. -monitor mental status. -attempt to minimize pain medications as able. ECHO: 03/24 to detention facility. Time-Based Coding :: [TOTAL MINUTES] spent with patient and on the chart (including review of chart, obtaining history, exam, reviewing outside data, placing orders, documenting exam and treatment plan, and counseling patient) on [DATE]. Quality VTE Deep Vein Thrombosis/Pulmonary Embolism Present on Admission: No
[2024-03-23 08:27] VITALS: BP 115/65
[2024-03-23] MEDS: LOSARTAN 50 MG TABLET PO (08:27)
[2024-03-23] MEDS: AMLODIPINE 5 MG TABLET PO (08:28)
[2024-03-23] MEDS: PREGABALIN 75 MG CAPSULE PO ×2 (08:28→20:30)
[2024-03-23] MEDS: hydroCHLOROthiazide 25 MG TABLET 12.5 MG PO (08:28)
[2024-03-23] MEDS: DULOXETINE 30 MG CAPSULE 60 MG PO (08:28)
[2024-03-23] MEDS: DOCUSATE 100 MG CAPSULE PO ×2 (08:28→20:29)
[2024-03-23] MEDS: CYCLOBENZAPRINE 10 MG TABLET 5 MG PO ×2 (08:30→20:29)
[2024-03-23 09:08] LABS: BUN Creatinine Ratio 17.2 (6-22); Blood Urea Nitrogen 10 mg/dL (7-17); Calcium 8.6 mg/dL (8.4-10.2); Carbon Dioxide 33 mmol/L (22-32); Chloride 94 mmol/L (98-107); Estimated Glomerular Filt Rate > 60 mL/min (>60); Glucose 117 mg/dL (80-110); HEMOLYSIS < 15 (0-50); Potassium 3.7 mmol/L (3.4-5.1); Sodium 128 mmol/L (137-145)
--- NOTE | 2024-03-23 10:09 | PT-IP ANOTE ---
Pt refused to work with PT this morning. She states she is in too much pain and would like to get back bed. Informed nursing she will need a lift for getting into bed.
--- NOTE | 2024-03-23 10:36 | CM.DPC ---
DCP Cont. Reviewed EMR and team rounds for status updates. Met with pt/spouse after long discussion with her nursing team. Pt is reportedly asking for pain medication often, and was too sedated to be able to work with PT today. She was found to be confusional and sedated when we met. GURWINDER explained the importance of working with therapies in order to progress to rehab, which is anticipated for tomorrow-03/24. Spouse continue to insist that she should be in the ICU, although this is not appropriate and has been explained to him multiple times. CENTER MEDICAL AND LAB DIRECTOR also explained that having some degree of pain was expected post-surgery, and getting moving with therapies will help to alleviate some of the discomfort by moving and getting her body used to safe mobility w/walker. GURWINDER also shared with her and spouse that she had actually needed to be narcaned in the PACU due to being overly medicated, which was due to her saying she had a low pain threshold. Discussed that it is a safety issue that we need to monitor the levels of pain medication that she is receiving. She was agreeable and will plan to work with PT later this afternoon. Updated her care team.
--- NOTE | 2024-03-23 14:29 | CM.DPC ---
DCP Cont. Called pt's dtr, Gifty, to update. Plan for tomorrow pending if [facility] has the bed availability. Will update her again tomorrow.
--- NOTE | 2024-03-23 14:51 | PC.NURSE ---
Assumed care of patient at 1400, A&Ox2, disoriented to place and situation. No c/o pain but c/o numbness and tingling to bilat LE. Lungs CTA, bowel sounds present. Pt helped to void in bedpan, PVR is 201mL. Dressing to back intact with minimal drainage. Pt reoriented to room and call light, no needs at this time, requesting to nap. Bed in low position, call light within reach, SCDs on, bed alarm activated.
--- NOTE | 2024-03-23 15:20 | PT.IPTN ---
Current Diagnoses Spondylolisthesis, lumbar region (03/21/24) Spinal stenosis, lumbar region without neurogenic claudication (03/21/24) Arthrodesis status (03/21/24) Surgery Performed Operation Date: 03/21/24 11:45 Actual Procedures p L4-5, L5-S1 TLIF with posterior instrumentation-Robot - John Olivarez MD Physical Therapy Treatment Note M2 PT-IP Current Condition Start: 03/22/24 12:02 Freq: NEEDED Status: Active Protocol: Document 03/22/24 09:30 AB (Rec: 03/22/24 12:17 AB [id number]) Physical Therapy Current Condition Current Condition Evaluation Date 03/22/24 Treatment Diagnosis s/p L4-5, L5S1 TLIF; difficulty in walking Onset Date 03/21/24 M3 PT-IP Subjective Start: 03/22/24 12:02 Freq: NEEDED Status: Active Protocol: Document 03/23/24 15:20 AB (Rec: 03/23/24 16:54 AB [id number]) Subjective Physical Therapy Visit Type Type Treatment Note Visit Start Time 15:20 Visit Stop Time 15:40 Number of CLIENT SERVER DEVELOPER Visits 0 Physical Therapy Visit Comments Patient Comments agreed to get up Therapy Pain Assessment Pain When Pain Assessed During Mobility Location back Scale Used not stated Pain Behaviors Facial Grimacing,Guarding, Restlessness,Wincing Pain Management Techniques Distraction,Modification of Treatment,Re-positioning, Timing of Activity with Medications M4 PT-IP Mobility and Gait Start: 03/22/24 12:02 Freq: NEEDED Status: Active Protocol: Document 03/23/24 15:20 AB (Rec: 03/23/24 16:54 AB [id number]) PT-Bed Mobility Assessment Rolling Type of Rolling Log Rolling Level of Assist Maximal Assistance,2 Person Assistance Supine to Sit Supine to Sit Maximum Assistance,2 Person Assistance,Head of Bed Elevated,Bedrails Sit to Supine Sit to Supine Maximum Assistance,2 Person Assistance,Bedrails Scooting Scooting to Edge of Bed Maximum Assistance PT-Transfer Assessment Sit to and From Stand Sit to and from Stand Maximum Assistance,2 Person Assistance,Use of Upper Extremities Equipment Transfer Assistive Device Gait Belt,Front Wheeled Walker Orthotic/Prosthetic Devices or Brace: No Transfers Transfer Destination Chair Transfer Technique Stand Pivot Transfer Ability Level of Assist Maximum Assistance,2 Person Assistance,Use of Upper Extremities Comments Mobility Comments pt supine in bed. agreed to get up. reviewed back precautions and pt unable to recall. pt completed log roll supine to sit max A x 2 and max cues. pt able to sit on EOB min A and max cues. sit<> stand x 3 attempts and pt unable to get to upright position despite max A x 2 provided. assisted pt to chair requiring max A x 2 for stand pivot transfter with PT in front to assist and OT behind pt to assist. positioned pt on the chair. left pt with OT. Gait Assessment Comments Gait Comments unable at this time M5 PT-IP Objective Assessments Start: 03/22/24 12:02 Freq: NEEDED Status: Active Protocol: Document 03/22/24 09:30 AB (Rec: 03/22/24 12:17 AB [id number]) Orientation Orientation/Cognition Level of Alertness Confusional State Orientation Name Language Function Ability Hard of Hearing Safety Awareness Decreased Safety Awareness Memory Description Short Term Impaired,Jail Impaired Gross Range of Motion Lower Extremity ROM Assessment Within Functional Limits Strength Lower Extremity Strength Assessment Left Impaired Hip 2+/5 Knee 3-/5 Sensation Assessment Sensation Sensation Description Numbness Comments Sensation Comments B feet numbness per pt Muscle Tone Muscle Tone WNL Yes M6 PT-IP Treatment Start: 03/22/24 12:02 Freq: NEEDED Status: Active Protocol: Document 03/23/24 15:20 AB (Rec: 03/23/24 16:54 AB [id number]) Physical Therapy Treatment Education Education Provided Precautions,Safety M7 PT-IP Assessment and Plan Start: 03/22/24 12:02 Freq: NEEDED Status: Active Protocol: Document 03/23/24 15:20 AB (Rec: 03/23/24 16:54 AB [id number]) PT Summary Assessment and Plan Potential Rehabilitation Potential Fair Summary Impairments Pain,ROM,Strength,Balance, Coordination,Sensation,Tone, Cognition,Bed Mobility, Transfers,Gait,Activity Tolerance Progress Towards Goals Slow Progress due to Pain,Slow Progress due to Medical Issues,Slow Progress due to Activity Tolerance,Slow Progress - Other Assessment Summary pt requiring max A x 2 with mobility and unable to maintain standing to transfer and ambulate with FWW. able to transfer with stand pivot transfer with 2 person max A. pt will require SNF rehab to improve overall strength and function. Goals Bed Mobility Goal Minimal Assistance Transfer Goal Minimal Assistance,Front Wheeled Walker Gait Goal Minimal Assistance,Front Wheel Walker Gait Distance 25 Other Goals improve bed mobility, transfers, ambulation using FWW SBA ~ 150 ft up/down 3 steps without rails with AD CGA Days to Meet Goals 10 Frequency of Treatment Frequency Of Treatment Twice a Day Treatment Plan Physical Therapy Treatment Plan Bed Mobility Training,Transfer Training,Gait Training, Therapeutic Exercise,Balance Retraining,Post Op Education, Discharge Planning,Hot or Cold Pack,Neuromuscular Re-ed, Coordination Retraining,Manual Therapy Precautions Lumbar Precautions Log Roll,No Twisting,Limit Bending,Lifting Restriction of 10 lbs,Gait Belt above Incisional Area Recommendations To Nursing Amount of Assist Needed Mechanical Lift Discharge Recommendations PT Discharge Recommendations SNF Rehab Transportation Needs at Discharge Wheelchair/Cabulance
--- NOTE | 2024-03-23 15:47 | OT.IP.TRT ---
Current Diagnoses Spondylolisthesis, lumbar region (03/21/24) Spinal stenosis, lumbar region without neurogenic claudication (03/21/24) Arthrodesis status (03/21/24) Surgery Performed Operation Date: 03/21/24 11:45 Actual Procedures p L4-5, L5-S1 TLIF with posterior instrumentation-Robot - John Olivarez MD Occupational Therapy Treatment Note M2 OT-IP Current Condition Start: 03/22/24 12:26 Freq: Status: Active Protocol: Document 03/22/24 12:26 [facility] (Rec: 03/22/24 12:39 [facility] [id number]) Occupational Therapy Current Condition Current Condition Evaluation Date 03/22/24 Treatment Diagnosis S/P L4-5, L5-S1 TLIF Diagnosis Onset Date 03/21/24 Post Operative Precautions Lumbar Precautions Log Roll,No Twisting,Limit Bending,Lifting Restriction of 10 lbs,Gait Belt above Incisional Area M3 OT- IP Subjective and Pain Start: 03/22/24 12:26 Freq: Status: Active Protocol: Document 03/23/24 15:48 [facility] (Rec: 03/23/24 15:57 [facility] [id number]) OT- Subjective Occupational Therapy Visit Type Type Treatment Note Visit Start Time 15:23 Visit Stop Time 15:46 Occupational Therapy Visit Comments Patient Comments Pt agreed to try to get up. OT Pain Assessment Pain When Pain Assessed At Rest Pain Present Pain Present Pain Reported Location back Intensity 8 Scale Used Numeric (0 - 10) M4 OT- IP ADL's Start: 03/22/24 12:26 Freq: Status: Active Protocol: Document 03/23/24 15:48 [facility] (Rec: 03/23/24 15:57 [facility] [id number]) OT [id number] Comments OT Self-Feeding Comments Not at meal time. OT ADL-Grooming Comments OT Grooming Comments Not performed. OT ADL-Oral Care Comments Oral Care Comments Not performed. OT ADL-Dressing Comments OT Dressing Comments Dependent for LB dressing at this time. OT ADL-Bathing Comments OT Bathing Comments Sponge bath more appropriate at this time. M5 OT- IP IADL's Start: 03/22/24 12:26 Freq: Status: Active Protocol: Document 03/22/24 12:26 [facility] (Rec: 03/22/24 12:39 [facility] [id number]) OT-Instrumental Activities of Daily Living Home Safety Awareness Home Safety Comments Pt has dementia per and that he assist with IADL needs. Medication Management Medication Management Caregiver Administers Money Management Money Management Caregiver Provides Assistance Meal Preparation Meal Preparation Caregiver Provides Assist Independent Trader Independent Trader Caregiver Provides Assist M6 OT- IP Functional Cognition Start: 03/22/24 12:26 Freq: Status: Active Protocol: Document 03/23/24 15:48 [facility] (Rec: 03/23/24 15:57 [facility] [id number]) Cognitive Factors Limiting Selfcare Function Cognitive Ability Level of Alertness Confusional State Patient Orientation Name Attention Span Ability Capable of Focused Attention, Unable to Sustain Attention Ability to Follow Commands Able to Follow One Step Commands with Increased Time, Able to Follow One Step Commands with Repetition Memory Description Short Term Impaired,Longterm Impaired Safety Awareness Decreased Recall of Precautions,Decreased Ability to Apply Precautions Cognitive Comments Cognitive Assessment Comments Pt not able to recall her back precautions and after educating just able to recall 2/3 precautions. Pt needing concrete step by step commands . Pt having difficulty to stand and tend to wait to pull on the FWW versus push down on it to assist to stand. M7 OT- IP Mobility and Balance Start: 03/22/24 12:26 Freq: Status: Active Protocol: Document 03/23/24 15:48 [facility] (Rec: 03/23/24 15:57 [facility] [id number]) OT- Bed Mobility Assessment Supine to Sit Supine to Sit Assist Maximum Assistance,2 Person Assistance OT-Transfer Assessment Sit to and From Stand Sit to and from Stand Maximum Assistance,2 Person Assistance Transfers Transfer Ability Maximum Assistance,Total Assistance,2 Person Assistance Technique Transfer Destination Bed,Chair Transfer Technique Stand Step Pivot Devices Transfer Assistive Devices Gait Belt Comments Mobility Comments Attempted to stand with the FWW and not able to stand all the way as buckling x2. PT and OT able to do stand pivot transfer to the recliner and pt able to actively move her feet with MAX/total A x2. AT this time still best to jj lift for safety as pt not following commands well as very groggy. Chair alarm attached and pt given ice packs for her back, and call light in front of her . OT- Balance Assessment Sitting Balance and Reactions Static Sitting Balance Ability Poor Dynamic Sitting Balance Ability Poor Standing Balance and Reactions Static Standing Balance Ability Poor Dynamic Standing Balance Ability Poor Comments Other Balance Tests/Deviations/Treatment Pt needing JOSE to MODA for : sitting balance,less assist when pt able to get her feet to the floor. Pt able actively assist to scoot forwards with MODA. M8 OT- IP Objective Assessments Start: 03/22/24 12:26 Freq: Status: Active Protocol: Document 03/22/24 12:26 [facility] (Rec: 03/22/24 12:39 [facility] [id number]) OT Gross Range of Motion Upper Extremity Range of Motion Assessment Within Functional Limits OT Strength Upper Extremity Strength Assessment Within Functional Limits M9 OT- IP Assessment and Plan Start: 03/22/24 12:26 Freq: Status: Active Protocol: Document 03/23/24 15:48 [facility] (Rec: 03/23/24 15:57 [facility] [id number]) OT Summary Assessment and Plan Potential Rehabilitation Potential Fair Analytic Complexity at Evaluation Low Summary OT Impairments Pain,Range of Motion,Strength, Balance,Functional Cognition, Functional Mobility,Self- Feeding,Grooming,Dressing, Toileting,Bathing,Toilet Transfers,Shower Transfers, Activity Tolerance Progress Towards Goals Slow Progress due to Pain,Slow Progress due to Medical Issues,Slow Progress due to Activity Tolerance,Slow Progress due to Cognition Assessment Summary Pt still needing extensive two person assist for mobility needs and safer to use mechanical lift as pt is very groggy, having difficulty to follow commands and not able to recall and incorporate her back precautions. Pt to go to skilled rehab when medically stable. Goals Self-Feeding Goal Standby Assistance Grooming Goal Standby Assistance Dressing Goal Moderate Assistance Toileting Goal Moderate Assistance Bathing Goal Moderate Assistance Toilet Transfer Goal Minimal Assistance Shower Transfer Goal Moderate Assistance Days to Meet Goals 25 Frequency of Treatment Other frequency 5x/week Treatment Plan Other Treatment Recommendations and Next Transfer to [facility] [place] with MAX AX 2 Treatment Focus with FWW. Discharge Recommendations OT Discharge Recommendations SNF Rehab Transportation Needs at Discharge Wheelchair/Cabulance
[2024-03-23 20:00] VITALS: BP 144/83; PULSE 92; RESP 20; TEMP 37.5; O2SAT 94
[2024-03-23] MEDS: SENNOSIDES 8.6 MG TABLET 17.2 MG PO (20:28)
[2024-03-23] MEDS: TRAZODONE 50 MG TABLET 100 MG PO (20:29)
[2024-03-23] MEDS: ACETAMINOPHEN 325 MG TABLET 650 MG PO (20:29)
[2024-03-24] MEDS: OXYCODONE IR 5 MG TABLET PO ×5 (00:20→20:36)
[2024-03-24] MEDS: ONDANSETRON 4 MG ODT SL (00:20)
--- NOTE | 2024-03-24 07:17 | PM.PN.1 ---
Subjective Subjective Interval history: S: She was doing a lot better today. She was less sedated from pain medications and did well ambulating this morning with physical therapy. Minimal back pain with sitting and tolerable back pain while standing and walking. No nausea. Exam Vital Signs (past 8 hours): - 03/24/24 06:00 Oxygen Delivery Method Nasal Cannula Oxygen Flow Rate 2 Fraction of Inspired Oxygen 28 Fraction of Inspired Oxygen 28 SaO2/FiO2 Ratio 404 Oxygen Delivery Method Nasal Cannula Oxygen Flow Rate 2 Narrative Exam Narrative: NAD, alert and oriented. Fluent speech. Lungs are clear, normal rate and effort. Heart is regular, no murmur gallop or rub. Abdomen is soft, non distended. Extremities are free of edema. Objective Labs 03/22/24 05:56 03/23/24 08:41 Labs: Laboratory Results - last 24 hr 03/23/24 08:41 Sodium 128 L Potassium 3.7 Chloride 94 L Carbon Dioxide 33 H BUN 10 Creatinine 0.58 Estimated GFR > 60 BUN/Creatinine Ratio 17.2 Glucose 117 H Calcium 8.6 PFSH Medical History Diabetes Depression HTN (hypertension) GERD (gastroesophageal reflux disease) Surgical History H/O cataract extraction H/O gastric bypass H/O: hysterectomy H/O laminectomy Social History marital status: household members: spouse Smoking Status: Never smoker alcohol intake: current Assessment & Plan Assessment and plan (1) S/P lumbar fusion: Status: Acute Assessment & Plan narrative: 1. Hypertension, with improved control. Present on admission and active. 132/78 today. 2. Depression, present on admission and stable. 3. Lumbar spinal stenosis, status post decompression and fusion. Active. 4. Medication-related encephalopathy, new and active. Plan: -continue current medications. -OOB -SNF tomorrow ECHO: 03/25. Time-Based Coding :: [TOTAL MINUTES] spent with patient and on the chart (including review of chart, obtaining history, exam, reviewing outside data, placing orders, documenting exam and treatment plan, and counseling patient) on [DATE]. Quality VTE Deep Vein Thrombosis/Pulmonary Embolism Present on Admission: No
--- NOTE | 2024-03-24 07:28 | P.DS_ITS ---
History of Present Illness History of Present Illness Date Patient Seen: 03/24/24 Time Patient Seen: 07:28 Chief complaint: Translam Intrbody Fus./Laminotomy -Robot Narrative: Operative Date/Time/Diagnoses Date of procedure: 03/21/24 Time of procedure: 12:45 Pre-op diagnosis: 1. L4-5, L5-S1 spondylolisthesis 2. Lumbar spinal stenosis with radiculopathy with history of laminectomies Post-op diagnosis: same Procedure & Clinicians Procedure: 1. L4-5, L5-S1 Postero-lateral and posterior interbody fusion 2. L4-5, L5-S1 interbody cage placement. 3. L4-5, L5-S1 decompressive laminectomy with bilateral facetecomies 4. L4-5, L5-S1 Posterior segmental instrumentation 5. [place] of bone marrow from iliac crest 6. Utilization of microsurgical technique and operating microscope 7. Utilization of robotic assisted navigation Same procedure as scheduled: Yes Indications: Patient has been having chronic back pain and worsening lumbar radiculopathy. Patient had history of lumbar laminectomies at L4-5 L5-S1 level more than 10 years ago. Patient has L4-5 L5-S1 foraminal stenosis and anterolisthesis correlating with the patient's symptoms. Patient failed multiple conservative management with worsening pain weakness and numbness in her lower extremity. Patient has been having difficulty performing activity of daily living. After discussing risks benefits of treatment options, patient elected proceed with surgery. Surgeon: John Olivarez Grease Buffer: Nelsy David Click Yes if Unassisted: No Anesthesia Type: General Operative Notes Closure Type: primary Specimen(s): none sent Prosthetic devices, grafts, tissues, transplants, or devices: Globus CREO MIS screws, Rise cages Applied: catheter Estimated Blood Loss (mL): 200 Blood products transfused: none Discharge Providers Provider Date of admission: 03/21/24 09:44 Discharge Date: 03/24/24 Primary care physician: Douglas Sam MD Consults: 03/21/24 18:45 Consult to Occupational Therapy Evaluate & Treat Comment: Physician Instructions: Evaluate and treat Consult to Physical Therapy Evaluate & Treat Comment: Physician Instructions: Evaluate and Treat 03/22/24 17:34 Consult to Hospitalist Service Routine Comment: Consulting Provider: Jaison Olmos Reason for consultation: new onset tachycardia and hypertension Has provider been notified: Yes Discharge provider: Nelsy David PA-C Summary Hospital Course Discharge Diagnosis: L4-5, L5-S1 spondylolisthesis , s/p L4-5, L5-S1 lumbar fusion Hospital Course: Ms Harper's hospital course was significant for over-sedation following surgery, requiring use of Narcan. During her hospital stay there were nursing reports of confusion, and these seemed to be related to medication. On the morning of POD# 3, she was alert and oriented and answering questions appropriately. I had the opportunity to speak with her , Nils, who says she is doing much better than she had been previously. Per notes, plan is to discharge to [facility]. Pain is well-controlled with oral medication and Exam Vital Signs (past 8 hours): - 03/24/24 06:00 Oxygen Delivery Method Nasal Cannula Oxygen Flow Rate 2 Fraction of Inspired Oxygen 28 Fraction of Inspired Oxygen 28 SaO2/FiO2 Ratio 404 Oxygen Delivery Method Nasal Cannula Oxygen Flow Rate 2 Narrative Exam Narrative: 5/5 strength in hip flexors, quadriceps, hamstrings, PF, DF, EHL bilaterally. Sensation to light touch intact throughout BLE. Calves soft and compressible. Unable to see dressings placed intraoperatively d/t positioning in bed. Objective Labs 03/22/24 05:56 03/23/24 08:41 Labs: Laboratory Results - last 24 hr 03/23/24 08:41 Sodium 128 L Potassium 3.7 Chloride 94 L Carbon Dioxide 33 H BUN 10 Creatinine 0.58 Estimated GFR > 60 BUN/Creatinine Ratio 17.2 Glucose 117 H Calcium 8.6 PFSH Medical History Diabetes Depression HTN (hypertension) GERD (gastroesophageal reflux disease) Surgical History H/O cataract extraction H/O gastric bypass H/O: hysterectomy H/O laminectomy Social History marital status: household members: spouse Smoking Status: Never smoker alcohol intake: current Discharge Assessment & Plan Assessment and Plan Assessment: L4-5, L5-S1 spondylolisthesis, s/p L4-5, L5-S1 lumbar fusion Plan of Treatment: Transfer to SNF, multimodal pain control, mechanical VTE, f/u in office in 2 weeks. Discharge Plan Discharge Plan Patient Disposition: SNF Transfer to: [facility] Discharge orders & Medications Prescriptions: New acetaminophen 325 mg Tablet 650 mg PO Q6H PRN (Reason: Fever/Mild Pain (1-3)) Qty: 240 0RF amlodipine [Norvasc] 5 mg Tablet 5 mg PO DAILY Qty: 30 0RF Rx Instructions: ONLY if SBP >140 ondansetron 4 mg Tablet,Disintegrating 4 mg sublingual Q4HR PRN (Reason: Nausea) Qty: 30 0RF oxycodone 5 mg Tablet 5 mg PO Q4-6H PRN (Reason: Pain, Moderate (4-6)) Qty: 40 0RF polyethylene glycol 3350 17 gram Powder In Packet 17 g PO DAILY PRN (Reason: Constipation) Qty: 100 0RF Continued irbesartan-hydrochlorothiazide 150-12.5 mg Tablet 1 tab PO DAILY pregabalin 75 mg Capsule 75 mg PO BID acetaminophen 500 mg Tablet 1,000 mg PO TID trazodone 150 mg tablet 200 mg PO BEDTIME Qty: 14 0RF lorazepam 1 mg tablet 1 mg PO BEDTIME PRN (Reason: Insomnia) Qty: 14 0RF omeprazole 20 mg capsule,delayed release(DR/EC) 20 mg PO DAILY duloxetine 60 mg capsule,delayed release(DR/EC) 60 mg PO DAILY Discontinued ibuprofen 200 mg tablet 400 mg PO QID PRN (Reason: Pain, Moderate) Follow up/Referrals: John Olivarez MD [Physician] - 04/04/24 2:00 pm (Follow up w/ Douglas Silva PA-C, at [facility] in [place].) Douglas Sam MD [Primary Care Provider] - Diet/Activity/Treatments Diet: Diet as Tolerated Activity: No deep bending or twisting at the waist. No lifting more than 10 pounds. Skin/Wound/Dressing Care Report to your healthcare provider any signs of infection, such as:: chills, fever, night sweats, unusual drainage and unusual redness Dressing: May shower. Keep dressing as dry as possible. If dressing becomes wet or dirty, may remove and replace with clean, dry gauze. No bathing or otherwise soaking incisions. Do not apply any creams, lotions, or ointments to incisions. Special Rehabilitation Services Reason for rehabilitation: Post-operative therapy Rehab type: Physical therapy and Occupational therapy Visit Report/Discharge Packet Instructions: DI for Prescription Opioid Use, DI for Transforaminal Lumbar Interbody Fusion Stand Alone Forms: Patient Portal/API, Surgery Discharge Discharge Data Primary Care Provider: Douglas Sam VTE Deep Vein Thrombosis/Pulmonary Embolism Present on Admission: No
[2024-03-24 08:15] VITALS: BP 132/78; PULSE 88; RESP 16; TEMP 36.7; O2SAT 92
[2024-03-24] MEDS: DULOXETINE 30 MG CAPSULE 60 MG PO (08:23)
[2024-03-24] MEDS: PREGABALIN 75 MG CAPSULE PO ×2 (08:23→20:36)
[2024-03-24] MEDS: AMLODIPINE 5 MG TABLET PO (08:23)
[2024-03-24] MEDS: DOCUSATE 100 MG CAPSULE PO ×2 (08:23→20:36)
[2024-03-24] MEDS: polyethylene glycoL 3350 17 GM POWD.PACK PO (08:23)
[2024-03-24] MEDS: PANTOPRAZOLE DR 20 MG TABLET PO (08:24)
[2024-03-24] MEDS: LOSARTAN 50 MG TABLET PO (08:24)
--- NOTE | 2024-03-24 10:05 | PT.IPTN ---
Current Diagnoses Spondylolisthesis, lumbar region (03/21/24) Spinal stenosis, lumbar region without neurogenic claudication (03/21/24) Arthrodesis status (03/21/24) Surgery Performed Operation Date: 03/21/24 11:45 Actual Procedures p L4-5, L5-S1 TLIF with posterior instrumentation-Robot - John Olivarez MD Physical Therapy Treatment Note M2 PT-IP Current Condition Start: 03/22/24 12:02 Freq: NEEDED Status: Active Protocol: Document 03/22/24 09:30 AB (Rec: 03/22/24 12:17 AB [id number]) Physical Therapy Current Condition Current Condition Evaluation Date 03/22/24 Treatment Diagnosis s/p L4-5, L5S1 TLIF; difficulty in walking Onset Date 03/21/24 M3 PT-IP Subjective Start: 03/22/24 12:02 Freq: NEEDED Status: Active Protocol: Document 03/24/24 10:52 TS (Rec: 03/24/24 11:02 TS [id number]) Subjective Physical Therapy Visit Type Type Treatment Note Visit Start Time 10:05 Visit Stop Time 10:30 Number of EVENT SPECIALIST Visits 1 Physical Therapy Visit Comments Patient Comments Pt is agreeable to PT. Therapy Pain Assessment Pain When Pain Assessed At Rest Pain Present Pain Present Pain Reported M4 PT-IP Mobility and Gait Start: 03/22/24 12:02 Freq: NEEDED Status: Active Protocol: Document 03/24/24 10:52 TS (Rec: 03/24/24 11:02 TS [id number]) PT-Bed Mobility Assessment Rolling Type of Rolling Log Rolling Level of Assist Moderate Assistance,1 Person Assistance Sit to Supine Sit to Supine Maximum Assistance,1 Person Assistance,Bedrails PT-Transfer Assessment Sit to and From Stand Sit to and from Stand Maximum Assistance,1 Person Assistance Equipment Transfer Assistive Device Gait Belt,Front Wheeled Walker Orthotic/Prosthetic Devices or Brace: No Comments Mobility Comments Pt found resting in the chair, she recalls 1/3 spinal precautions prior to mobility( no bending). STS with FWW MaxA for balance, she requires cues for STS technique. She ambulates in the room 2x20' Gladys with FWW. pt requests back to bed. Sit to supine into bed MaxA for LE's and max cues for logroll. Pt was left in bed, all needs met. Gait Assessment Gait Gait Assistance Required: Minimum Assistance,1 Person Assist Distance (Feet) 40 Able to Maintain Weight Bearing Status Yes During Gait Assistive Devices Assistive Device Gait Belt,Front Wheeled Walker Orthotic/Prosthetic Devices or Brace: No Gait Deviations General Gait Pattern Antalgic,Decreased Stride Length,Decreased Feet Clearance,Step-to Gait Factors Limiting Gait Function Factors Limiting Gait Function Decreased Activity Tolerance, Decreased Strength,Difficulty Following Directions,Limited Range of Motion,Pain,Poor Balance,Poor Safety Awareness PT-Balance Assessment Sitting Balance and Reactions Static Sitting Balance Ability Fair Dynamic Sitting Balance Ability Poor Standing Balance and Reactions Static Standing Balance Ability Fair Dynamic Standing Balance Ability Poor Device Used FWW M5 PT-IP Objective Assessments Start: 03/22/24 12:02 Freq: NEEDED Status: Active Protocol: Document 03/22/24 09:30 AB (Rec: 03/22/24 12:17 AB [id number]) Orientation Orientation/Cognition Level of Alertness Confusional State Orientation Name Language Function Ability Hard of Hearing Safety Awareness Decreased Safety Awareness Memory Description Short Term Impaired,Nursing Home Impaired Gross Range of Motion Lower Extremity ROM Assessment Within Functional Limits Strength Lower Extremity Strength Assessment Left Impaired Hip 2+/5 Knee 3-/5 Sensation Assessment Sensation Sensation Description Numbness Comments Sensation Comments B feet numbness per pt Muscle Tone Muscle Tone WNL Yes M6 PT-IP Treatment Start: 03/22/24 12:02 Freq: NEEDED Status: Active Protocol: Document 03/24/24 10:52 TS (Rec: 03/24/24 11:02 TS [id number]) Physical Therapy Treatment Education Education Provided Precautions,Safety M7 PT-IP Assessment and Plan Start: 03/22/24 12:02 Freq: NEEDED Status: Active Protocol: Document 03/24/24 10:52 TS (Rec: 03/24/24 11:02 TS [id number]) PT Summary Assessment and Plan Potential Rehabilitation Potential Fair Summary Impairments Pain,ROM,Strength,Balance, Coordination,Sensation,Tone, Cognition,Bed Mobility, Transfers,Gait,Activity Tolerance Progress Towards Goals Slow Progress due to Pain,Slow Progress due to Medical Issues,Slow Progress due to Activity Tolerance,Slow Progress - Other Assessment Summary Ursula is making progress this session but continues to be limited by pain and activity tolerance. She progressed her gait to 2x20' with use of FWW. She requires decreased to one person for all mobility. She has difficulty remembering precautions, she recalled 1/3. PT continues to recommend SNF . Goals Bed Mobility Goal Minimal Assistance Transfer Goal Minimal Assistance,Front Wheeled Walker Gait Goal Minimal Assistance,Front Wheel Walker Gait Distance 25 Other Goals improve bed mobility, transfers, ambulation using FWW SBA ~ 150 ft up/down 3 steps without rails with AD CGA Days to Meet Goals 10 Frequency of Treatment Frequency Of Treatment Twice a Day Treatment Plan Physical Therapy Treatment Plan Bed Mobility Training,Transfer Training,Gait Training, Therapeutic Exercise,Balance Retraining,Post Op Education, Discharge Planning,Hot or Cold Pack,Neuromuscular Re-ed, Coordination Retraining,Manual Therapy Precautions Lumbar Precautions Log Roll,No Twisting,Limit Bending,Lifting Restriction of 10 lbs,Gait Belt above Incisional Area Recommendations To Nursing Amount of Assist Needed 1 Person Assist Discharge Recommendations PT Discharge Recommendations SNF Rehab Transportation Needs at Discharge Wheelchair/Cabulance
--- NOTE | 2024-03-24 11:31 | CM.DPC ---
DCP Cont. Reviewed EMR and team rounds for status updates. Pt reportedly had symptoms of sundowning last evening, is very sleepy today, although she did work with PT and OT earlier this am. Plan is for d/c to [facility] tomorrow, 03/25 between 10:30-11:00am, facility will transport. Updated pt's spouse in the room re: plan.
--- NOTE | 2024-03-24 13:15 | PT.IPTN ---
Current Diagnoses Spondylolisthesis, lumbar region (03/21/24) Spinal stenosis, lumbar region without neurogenic claudication (03/21/24) Arthrodesis status (03/21/24) Surgery Performed Operation Date: 03/21/24 11:45 Actual Procedures p L4-5, L5-S1 TLIF with posterior instrumentation-Robot - John Olivarez MD Physical Therapy Treatment Note M2 PT-IP Current Condition Start: 03/22/24 12:02 Freq: NEEDED Status: Active Protocol: Document 03/22/24 09:30 AB (Rec: 03/22/24 12:17 AB [id number]) Physical Therapy Current Condition Current Condition Evaluation Date 03/22/24 Treatment Diagnosis s/p L4-5, L5S1 TLIF; difficulty in walking Onset Date 03/21/24 M3 PT-IP Subjective Start: 03/22/24 12:02 Freq: NEEDED Status: Active Protocol: Document 03/24/24 14:20 TS (Rec: 03/24/24 14:31 TS [id number]) Subjective Physical Therapy Visit Type Type Treatment Note Visit Start Time 13:15 Visit Stop Time 14:15 Number of INSTRUMENTATION MANAGER Visits 1 Physical Therapy Visit Comments Patient Comments Pt found resting in bed, unsure of her pain level, she is agreeable to PT. Therapy Pain Assessment Pain When Pain Assessed At Rest Pain Present Pain Present Pain Reported M4 PT-IP Mobility and Gait Start: 03/22/24 12:02 Freq: NEEDED Status: Active Protocol: Document 03/24/24 14:20 TS (Rec: 03/24/24 14:31 TS [id number]) PT-Bed Mobility Assessment Rolling Type of Rolling Log Rolling Level of Assist Maximal Assistance,1 Person Assistance Supine to Sit Supine to Sit Maximum Assistance,2 Person Assistance,Head of Bed Elevated,Bedrails Scooting Scooting to Edge of Bed Moderate Assistance PT-Transfer Assessment Sit to and From Stand Sit to and from Stand Maximum Assistance,2 Person Assistance,Use of Upper Extremities Equipment Transfer Assistive Device Gait Belt,Front Wheeled Walker Transfers Transfer Destination Chair Transfer Technique Stand Step Pivot Comments Mobility Comments Pt recalls 1/3 spinal precautions(bending). Logroll to R side MaxA with max cues. Supine to sit MaxA x2 for uprighting to EOB. STS with FWW x2 MaxA, pt has some buckling L knee, required to sit on bed. Stand step pivot to the chair MAxA x2 with max cues. Pt performs glute sets, quad sets, heel slides, ankle pumps, seated march and seated knee flex/ext. Gait Assessment Comments Gait Comments Stand step pivot PT-Balance Assessment Sitting Balance and Reactions Static Sitting Balance Ability Fair Dynamic Sitting Balance Ability Poor Standing Balance and Reactions Static Standing Balance Ability Fair Dynamic Standing Balance Ability Poor Device Used FWW M5 PT-IP Objective Assessments Start: 03/22/24 12:02 Freq: NEEDED Status: Active Protocol: Document 03/22/24 09:30 AB (Rec: 03/22/24 12:17 AB [id number]) Orientation Orientation/Cognition Level of Alertness Confusional State Orientation Name Language Function Ability Hard of Hearing Safety Awareness Decreased Safety Awareness Memory Description Short Term Impaired,F[employer] Impaired Gross Range of Motion Lower Extremity ROM Assessment Within Functional Limits Strength Lower Extremity Strength Assessment Left Impaired Hip 2+/5 Knee 3-/5 Sensation Assessment Sensation Sensation Description Numbness Comments Sensation Comments B feet numbness per pt Muscle Tone Muscle Tone WNL Yes M6 PT-IP Treatment Start: 03/22/24 12:02 Freq: NEEDED Status: Active Protocol: Document 03/24/24 14:20 TS (Rec: 03/24/24 14:31 TS [id number]) Physical Therapy Treatment Education Education Provided Precautions,Safety M7 PT-IP Assessment and Plan Start: 03/22/24 12:02 Freq: NEEDED Status: Active Protocol: Document 03/24/24 14:20 TS (Rec: 03/24/24 14:31 TS [id number]) PT Summary Assessment and Plan Potential Rehabilitation Potential Fair Summary Impairments Pain,ROM,Strength,Balance, Coordination,Sensation,Tone, Cognition,Bed Mobility, Transfers,Gait,Activity Tolerance Progress Towards Goals Slow Progress due to Pain,Slow Progress due to Medical Issues,Slow Progress due to Activity Tolerance,Slow Progress - Other Assessment Summary Ruben is having more difficulty with her mobility this afternoon. She is groggy and has a difficult time staying awake. She require Max cues for all mobility this session. She did not progress ambulation this session due to buckling of L knee. A handout was given of LE's exercises for pt to perform. PT is recommending SNF. Goals Bed Mobility Goal Minimal Assistance Transfer Goal Minimal Assistance,Front Wheeled Walker Gait Goal Minimal Assistance,Front Wheel Walker Gait Distance 25 Other Goals improve bed mobility, transfers, ambulation using FWW SBA ~ 150 ft up/down 3 steps without rails with AD CGA Days to Meet Goals 10 Frequency of Treatment Frequency Of Treatment Twice a Day Treatment Plan Physical Therapy Treatment Plan Bed Mobility Training,Transfer Training,Gait Training, Therapeutic Exercise,Balance Retraining,Post Op Education, Discharge Planning,Hot or Cold Pack,Neuromuscular Re-ed, Coordination Retraining,Manual Therapy Precautions Lumbar Precautions Log Roll,No Twisting,Limit Bending,Lifting Restriction of 10 lbs,Gait Belt above Incisional Area Recommendations To Nursing Amount of Assist Needed 2 Person Assist Discharge Recommendations PT Discharge Recommendations SNF Rehab Transportation Needs at Discharge Wheelchair/Cabulance
--- NOTE | 2024-03-24 14:00 | OT.IP.TRT ---
Current Diagnoses Spondylolisthesis, lumbar region (03/21/24) Spinal stenosis, lumbar region without neurogenic claudication (03/21/24) Arthrodesis status (03/21/24) Surgery Performed Operation Date: 03/21/24 11:45 Actual Procedures p L4-5, L5-S1 TLIF with posterior instrumentation-Robot - John Olivarez MD Occupational Therapy Treatment Note M2 OT-IP Current Condition Start: 03/22/24 12:26 Freq: Status: Active Protocol: Document 03/22/24 12:26 [facility] (Rec: 03/22/24 12:39 [facility] [id number]) Occupational Therapy Current Condition Current Condition Evaluation Date 03/22/24 Treatment Diagnosis S/P L4-5, L5-S1 TLIF Diagnosis Onset Date 03/21/24 Post Operative Precautions Lumbar Precautions Log Roll,No Twisting,Limit Bending,Lifting Restriction of 10 lbs,Gait Belt above Incisional Area M3 OT- IP Subjective and Pain Start: 03/22/24 12:26 Freq: Status: Active Protocol: Document 03/24/24 14:28 [facility] (Rec: 03/24/24 14:37 [facility] [id number]) OT- Subjective Occupational Therapy Visit Type Type Treatment Note Visit Start Time 13:17 Visit Stop Time 14:00 Occupational Therapy Visit Comments Patient Comments Pt agreed to get up and not able to answer or realize if she was having pain at prior to getting up. OT Pain Assessment Pain When Pain Assessed During Mobility Pain Present Pain Present Pain Reported Location back Pain Behaviors Holding Area M4 OT- IP ADL's Start: 03/22/24 12:26 Freq: Status: Active Protocol: Document 03/24/24 14:28 [facility] (Rec: 03/24/24 14:37 [facility] [id number]) OT [id number] Comments OT Self-Feeding Comments Not at meal time. OT ADL-Grooming General Evaluation Grooming Ability Standby Assistance Areas Needing Assistance Retrieving/Set-up of Grooming Items Comments OT Grooming Comments Pt able to was her face after set-up. OT ADL-Oral Care General Eval Oral Care Ability Standby Assistance Areas of Assistance Retrieving/Set-Up of Items Comments Oral Care Comments Pt able to do with increased time while seated. OT ADL-Dressing General Eval Lower Body Dressing Ability Maximum Assistance Areas Needing Assistance Socks Comments OT Dressing Comments Dependent for LB dressing at this time. OT ADL-Bathing Comments OT Bathing Comments Sponge bath more appropriate at this time. M5 OT- IP IADL's Start: 03/22/24 12:26 Freq: Status: Active Protocol: Document 03/22/24 12:26 [facility] (Rec: 03/22/24 12:39 [facility] [id number]) OT-Instrumental Activities of Daily Living Home Safety Awareness Home Safety Comments Pt has dementia per and that he assist with IADL needs. Medication Management Medication Management Caregiver Administers Money Management Money Management Caregiver Provides Assistance Meal Preparation Meal Preparation Caregiver Provides Assist Quality Associate Quality Associate Caregiver Provides Assist M6 OT- IP Functional Cognition Start: 03/22/24 12:26 Freq: Status: Active Protocol: Document 03/24/24 14:28 [facility] (Rec: 03/24/24 14:37 [facility] [id number]) Cognitive Factors Limiting Selfcare Function Cognitive Ability Level of Alertness Confusional State Patient Orientation Name Attention Span Ability Capable of Focused Attention, Unable to Sustain Attention Ability to Follow Commands Able to Follow One Step Commands with Increased Time, Able to Follow One Step Commands with Repetition Memory Description Short Term Impaired,Home Health Clinician Impaired Safety Awareness Decreased Recall of Precautions,Decreased Ability to Apply Precautions Cognitive Comments Cognitive Assessment Comments Pt just able to recall 1/3 precautions. Educated pt's not to joke around with the pt as she is very confused at this time and best to be more concrete with her. M7 OT- IP Mobility and Balance Start: 03/22/24 12:26 Freq: Status: Active Protocol: Document 03/24/24 14:28 [facility] (Rec: 03/24/24 14:37 [facility] [id number]) OT- Bed Mobility Assessment Supine to Sit Supine to Sit Assist Maximum Assistance,1 Person Assistance,2 Person Assistance OT-Transfer Assessment Sit to and From Stand Sit to and from Stand Maximum Assistance,2 Person Assistance Transfers Transfer Ability Maximum Assistance,2 Person Assistance Technique Transfer Destination Bed,Chair Transfer Technique Stand Step Pivot Devices Transfer Assistive Devices Gait Belt,Front Wheeled Walker Comments Mobility Comments ON first attempt to stand, pt buckling with her LLE. Pt able to stand to the FWW on 2nd attempted adn assist to help hold her LLE from buckling able to transfer to the recliner with MAXAx2. OT- Balance Assessment Sitting Balance and Reactions Static Sitting Balance Ability Poor Dynamic Sitting Balance Ability Poor Standing Balance and Reactions Static Standing Balance Ability Poor Dynamic Standing Balance Ability Poor Comments Other Balance Tests/Deviations/Treatment Pt needing cues to not scoot : too far forwards as pt tend to lean backwards at times and is a high risk to fall of the bed. M8 OT- IP Objective Assessments Start: 03/22/24 12:26 Freq: Status: Active Protocol: Document 03/22/24 12:26 [facility] (Rec: 03/22/24 12:39 [facility] [id number]) OT Gross Range of Motion Upper Extremity Range of Motion Assessment Within Functional Limits OT Strength Upper Extremity Strength Assessment Within Functional Limits M9 OT- IP Assessment and Plan Start: 03/22/24 12:26 Freq: Status: Active Protocol: Document 03/24/24 14:28 [facility] (Rec: 03/24/24 14:37 [facility] [id number]) OT Summary Assessment and Plan Potential Rehabilitation Potential Fair Analytic Complexity at Evaluation Low Summary OT Impairments Pain,Range of Motion,Strength, Balance,Functional Cognition, Functional Mobility,Self- Feeding,Grooming,Dressing, Toileting,Bathing,Toilet Transfers,Shower Transfers, Activity Tolerance Progress Towards Goals Slow Progress due to Pain,Slow Progress due to Medical Issues,Slow Progress due to Activity Tolerance,Slow Progress due to Cognition Assessment Summary Pt able to transfer with MAX AX 2 with FWW today. Pt still quite groggy and not able to recall her back precautions. Pt to go to skilled rehab when medically stable. Goals Self-Feeding Goal Standby Assistance Grooming Goal Standby Assistance Dressing Goal Moderate Assistance Toileting Goal Moderate Assistance Bathing Goal Moderate Assistance Toilet Transfer Goal Minimal Assistance Shower Transfer Goal Moderate Assistance Days to Meet Goals 25 Frequency of Treatment Other frequency 5x/week Treatment Plan Other Treatment Recommendations and Next [place] [facility] [place] 2 Treatment Focus with FWW. Discharge Recommendations OT Discharge Recommendations SNF Rehab Transportation Needs at Discharge Wheelchair/Cabulance
--- NOTE | 2024-03-24 14:56 | OT.IPNOTE ---
Pt just spoke with case management regarding discharge plans. CM agreed best to give pt time to process the information and make calls as needed.
[2024-03-24] MEDS: TRAZODONE 50 MG TABLET 100 MG PO (20:36)
[2024-03-24] MEDS: SENNOSIDES 8.6 MG TABLET 17.2 MG PO (20:36)
[2024-03-25] MEDS: OXYCODONE IR 5 MG TABLET PO ×2 (00:32→08:35)
--- NOTE | 2024-03-25 07:50 | PM.DS.1 ---
History of Present Illness History of Present Illness Date Patient Seen: 03/25/24 Time Patient Seen: 07:05 Chief complaint: [place]lam Intrbody Fus./Laminotomy -Robot Narrative: Operative Date/Time/Diagnoses Date of procedure: 03/21/24 Time of procedure: 12:45 Pre-op diagnosis: 1. L4-5, L5-S1 spondylolisthesis 2. Lumbar spinal stenosis with radiculopathy with history of laminectomies Post-op diagnosis: same Procedure & Clinicians Procedure: 1. L4-5, L5-S1 Postero-lateral and posterior interbody fusion 2. L4-5, L5-S1 interbody cage placement. 3. L4-5, L5-S1 decompressive laminectomy with bilateral facetecomies 4. L4-5, L5-S1 Posterior segmental instrumentation 5. [place] of bone marrow from iliac crest 6. Utilization of microsurgical technique and operating microscope 7. Utilization of robotic assisted navigation Same procedure as scheduled: Yes Indications: Patient has been having chronic back pain and worsening lumbar radiculopathy. Patient had history of lumbar laminectomies at L4-5 L5-S1 level more than 10 years ago. Patient has L4-5 L5-S1 foraminal stenosis and anterolisthesis correlating with the patient's symptoms. Patient failed multiple conservative management with worsening pain weakness and numbness in her lower extremity. Patient has been having difficulty performing activity of daily living. After discussing risks benefits of treatment options, patient elected proceed with surgery. Surgeon: John Olivarez Downstairs Maid: Nelsy David Click Yes if Unassisted: No Anesthesia Type: General Operative Notes Closure Type: primary Specimen(s): none sent Prosthetic devices, grafts, tissues, transplants, or devices: Globus CREO MIS screws, Rise cages Applied: catheter Estimated Blood Loss (mL): 200 Blood products transfused: none Discharge Providers Provider Date of admission: 03/21/24 09:44 Discharge Date: 03/25/24 Primary care physician: Douglas Sam MD Consults: 03/21/24 18:45 Consult to Occupational Therapy Evaluate & Treat Comment: Physician Instructions: Evaluate and treat Consult to Physical Therapy Evaluate & Treat Comment: Physician Instructions: Evaluate and Treat 03/22/24 17:34 Consult to Hospitalist Service Routine Comment: Consulting Provider: Jaison Olmos Reason for consultation: new onset tachycardia and hypertension Has provider been notified: Yes Discharge provider: Aquiles Silva PA-C Summary Hospital Course Discharge Diagnosis: L4-5, L5-S1 spondylolisthesis , s/p L4-5, L5-S1 lumbar fusion Hospital Course: Multimodal pain control. Physical therapy to help with ambulation. Occupational therapy to assist with ADLs. Status at Discharge Cognitive/behavioral status at discharge: oriented Functional status at discharge: uses cane/walker Overall status at discharge: patient is back to baseline Time Spent with Patient Time spent: Less than 30 minutes Exam Vital Signs (past 8 hours): Fraction of Inspired Oxygen 28 SaO2/FiO2 Ratio 404 Oxygen Delivery Method Room Air Oxygen Flow Rate 2 Narrative Exam Narrative: 5/5 strength in hip flexors, quadriceps, hamstrings, PF, DF, EHL bilaterally. Sensation to light touch intact throughout BLE. Calves soft and compressible. Unable to see dressings placed intraoperatively d/t positioning in bed. Objective Labs 03/22/24 05:56 03/23/24 08:41 PFS Medical History Diabetes Depression HTN (hypertension) GERD (gastroesophageal reflux disease) Surgical History H/O cataract extraction H/O gastric bypass H/O: hysterectomy H/O laminectomy Social History marital status: household members: spouse Smoking Status: Never smoker alcohol intake: current Discharge Assessment & Plan Assessment and Plan Assessment: L4-5, L5-S1 spondylolisthesis, s/p L4-5, L5-S1 lumbar fusion Plan of Treatment: Transfer to SNF, multimodal pain control, mechanical VTE, f/u in office in 2 weeks. Discharge Plan Discharge Plan Patient Disposition: [facility] Transfer to: [facility] Discharge orders & Medications Prescriptions: New acetaminophen 325 mg Tablet 650 mg PO Q6H PRN (Reason: Fever/Mild Pain (1-3)) Qty: 240 0RF amlodipine [Norvasc] 5 mg Tablet 5 mg PO DAILY Qty: 30 0RF Rx Instructions: ONLY if SBP >140 ondansetron 4 mg Tablet,Disintegrating 4 mg sublingual Q4HR PRN (Reason: Nausea) Qty: 30 0RF oxycodone 5 mg Tablet 5 mg PO Q4-6H PRN (Reason: Pain, Moderate (4-6)) Qty: 40 0RF polyethylene glycol 3350 17 gram Powder In Packet 17 g PO DAILY PRN (Reason: Constipation) Qty: 100 0RF Continued irbesartan-hydrochlorothiazide 150-12.5 mg Tablet 1 tab PO DAILY pregabalin 75 mg Capsule 75 mg PO BID acetaminophen 500 mg Tablet 1,000 mg PO TID trazodone 150 mg tablet 200 mg PO BEDTIME Qty: 14 0RF lorazepam 1 mg tablet 1 mg PO BEDTIME PRN (Reason: Insomnia) Qty: 14 0RF omeprazole 20 mg capsule,delayed release(DR/EC) 20 mg PO DAILY duloxetine 60 mg capsule,delayed release(DR/EC) 60 mg PO DAILY Discontinued ibuprofen 200 mg tablet 400 mg PO QID PRN (Reason: Pain, Moderate) Follow up/Referrals: John Olivarez MD [Physician] - 04/04/24 2:00 pm (Follow up w/ Douglas Silva PA-C, at [facility] in [place].) Douglas Sam MD [Primary Care Provider] - Diet/Activity/Treatments Diet: Diet as Tolerated Activity: No deep bending or twisting at the waist. No lifting more than 10 pounds. Skin/Wound/Dressing Care Report to your healthcare provider any signs of infection, such as:: chills, fever, night sweats, unusual drainage and unusual redness Dressing: May shower. Keep dressing as dry as possible. If dressing becomes wet or dirty, may remove and replace with clean, dry gauze. No bathing or otherwise soaking incisions. Do not apply any creams, lotions, or ointments to incisions. Special Rehabilitation Services Reason for rehabilitation: Post-operative therapy Rehab type: Physical therapy and Occupational therapy Visit Report/Discharge Packet Instructions: DI for Prescription Opioid Use, DI for Transforaminal Lumbar Interbody Fusion Stand Alone Forms: Patient Portal/API, Surgery Discharge Discharge Data Primary Care Provider: Douglas Sam Quality VTE Deep Vein Thrombosis/Pulmonary Embolism Present on Admission: No
[2024-03-25 08:00] VITALS: BP 113/72; PULSE 87; RESP 15; TEMP 37.5; O2SAT 91
--- NOTE | 2024-03-25 08:09 | CM.DPC ---
DCP Continued: Reviewed EMR and team rounds for pt?s medical status. Pt has been accepted at [facility], will be transported by the facility van today, 03/25 at 10:30am-11:00am. Signed med list, paper prescriptions, PASRR completed and scanned to be sent to accepting SNF prior to discharge. CM Team notified pt RN, ABBY. Pt family was notified yesterday per CM notes. Plan: Discharge to SNF Rehab ([facility]) at 10:30-11:00am. CM Team will continue to follow for coordination of discharge plans. CHRISSY Newman
[2024-03-25 08:35] VITALS: BP 113/72; PULSE 87
[2024-03-25] MEDS: PANTOPRAZOLE DR 20 MG TABLET PO (08:35)
[2024-03-25] MEDS: AMLODIPINE 5 MG TABLET PO (08:35)
[2024-03-25] MEDS: PREGABALIN 75 MG CAPSULE PO (08:35)
[2024-03-25] MEDS: LOSARTAN 50 MG TABLET PO (08:35)
[2024-03-25] MEDS: ACETAMINOPHEN 325 MG TABLET 650 MG PO (08:35)
[2024-03-25] MEDS: DULOXETINE 30 MG CAPSULE 60 MG PO (08:36)
[2024-03-25] MEDS: DOCUSATE 100 MG CAPSULE PO (08:36)
--- NOTE | 2024-03-25 09:30 | OT.IP.TRT ---
Current Diagnoses Spondylolisthesis, lumbar region (03/21/24) Spinal stenosis, lumbar region without neurogenic claudication (03/21/24) Arthrodesis status (03/21/24) Surgery Performed Operation Date: 03/21/24 11:45 Actual Procedures p L4-5, L5-S1 TLIF with posterior instrumentation-Robot - John Olivarez MD Occupational Therapy Treatment Note M2 OT-IP Current Condition Start: 03/22/24 12:26 Freq: Status: Active Protocol: Document 03/22/24 12:26 [facility] (Rec: 03/22/24 12:39 [facility] [id number]) Occupational Therapy Current Condition Current Condition Evaluation Date 03/22/24 Treatment Diagnosis S/P L4-5, L5-S1 TLIF Diagnosis Onset Date 03/21/24 Post Operative Precautions Lumbar Precautions Log Roll,No Twisting,Limit Bending,Lifting Restriction of 10 lbs,Gait Belt above Incisional Area M3 OT- IP Subjective and Pain Start: 03/22/24 12:26 Freq: Status: Active Protocol: Document 03/25/24 09:36 [facility] (Rec: 03/25/24 09:43 [facility] [id number]) OT- Subjective Occupational Therapy Visit Type Type Treatment Note Visit Start Time 09:15 Visit Stop Time 09:36 Occupational Therapy Visit Comments Patient Comments Pt eating breakfast. Patient/Caregiver Goals TO get better. OT Pain Assessment Pain When Pain Assessed During Mobility Pain Present Pain Present Pain Reported Location back Pain Behaviors Facial Grimacing,Wincing M4 OT- IP ADL's Start: 03/22/24 12:26 Freq: Status: Active Protocol: Document 03/25/24 09:36 [facility] (Rec: 03/25/24 09:43 [facility] [id number]) OT BZH-Sekz-Tvkybbn General Evaluation Self-Feeding Ability Independent Comments OT Self-Feeding Comments Pt not eating much and asked pt if she wanted an Ensure, able to ask nursing. OT ADL-Grooming Comments OT Grooming Comments Not performed. OT ADL-Oral Care Comments Oral Care Comments NOt performed. M5 OT- IP IADL's Start: 03/22/24 12:26 Freq: Status: Active Protocol: Document 03/22/24 12:26 [facility] (Rec: 03/22/24 12:39 [facility] [id number]) OT-Instrumental Activities of Daily Living Home Safety Awareness Home Safety Comments Pt has dementia per and that he assist with IADL needs. Medication Management Medication Management Caregiver Administers Money Management Money Management Caregiver Provides Assistance Meal Preparation Meal Preparation Caregiver Provides Assist Station Engineer Station Engineer Caregiver Provides Assist M6 OT- IP Functional Cognition Start: 03/22/24 12:26 Freq: Status: Active Protocol: Document 03/25/24 09:36 [facility] (Rec: 03/25/24 09:43 [facility] [id number]) Cognitive Factors Limiting Selfcare Function Cognitive Ability Level of Alertness Alert,Drowsy Cognitive Comments Cognitive Assessment Comments Pt still needing cues to recall her back precautions. Able to demonstrate FWW techniques, safety awareness, and had pt state what is safe or not safe. Pt able to identify unsafe situations and at times able to clarify what to do. M8 OT- IP Objective Assessments Start: 03/22/24 12:26 Freq: Status: Active Protocol: Document 03/22/24 12:26 [facility] (Rec: 03/22/24 12:39 [facility] [id number]) OT Gross Range of Motion Upper Extremity Range of Motion Assessment Within Functional Limits OT Strength Upper Extremity Strength Assessment Within Functional Limits M9 OT- IP Assessment and Plan Start: 03/22/24 12:26 Freq: Status: Active Protocol: Document 03/25/24 09:36 [facility] (Rec: 03/25/24 09:43 [facility] [id number]) OT Summary Assessment and Plan Potential Rehabilitation Potential Good Analytic Complexity at Evaluation Low Summary OT Impairments Pain,Range of Motion,Strength, Balance,Functional Cognition, Functional Mobility,Self- Feeding,Grooming,Dressing, Toileting,Bathing,Toilet Transfers,Shower Transfers, Activity Tolerance Progress Towards Goals Progressing Toward Goals Assessment Summary Pt has been able to get up with nursing with two person assist with FWW. Pt to go to skilled rehab today. Encouraged pt to ask nursing at SNF to write down times for med medications and ask her prior to bedtime if she wants to be waken up for pain meds. Goals Self-Feeding Goal Standby Assistance Grooming Goal Standby Assistance Dressing Goal Moderate Assistance Toileting Goal Moderate Assistance Bathing Goal Moderate Assistance Toilet Transfer Goal Minimal Assistance Shower Transfer Goal Moderate Assistance Days to Meet Goals 25 Frequency of Treatment Other frequency 5x/week Treatment Plan Other Treatment Recommendations and [place] [facility] [place] Treatment Focus with FWW. Discharge Recommendations OT Discharge Recommendations SNF Rehab Transportation Needs at Discharge Wheelchair/Cabulance
--- NOTE | 2024-03-25 10:58 | PM.PN.1 ---
Subjective Subjective Interval history: Doing much better today. She was mentally much more clear and has good pain control. Subjective: She was sitting in chair and notes the pain is very manageable. She was looking forward to moving to rehabilitation today. Exam Vital Signs (past 8 hours): - 03/25/24 08:00 03/25/24 08:35 Temperature 99.5 F Pulse Rate 87 87 Respiratory Rate 15 Blood Pressure 113/72 113/72 Pulse Oximetry 91 Fraction of Inspired Oxygen 28 SaO2/FiO2 Ratio 404 Oxygen Delivery Method Room Air Oxygen Flow Rate 2 Narrative Exam Narrative: Alert and oriented x3, NAD with fluent speech. Breathing comfortably with normal rate and effort. No leg edema. Objective Labs 03/22/24 05:56 03/23/24 08:41 [facility] Medical History Diabetes Depression HTN (hypertension) GERD (gastroesophageal reflux disease) Surgical History H/O cataract extraction H/O gastric bypass H/O: hysterectomy H/O laminectomy Social History marital status: household members: spouse Smoking Status: Never smoker alcohol intake: current Assessment & Plan Assessment & Plan narrative: 1. Hypertension, with improved control. Present on admission and active. 132/78 today. 2. Depression, present on admission and stable. 3. Lumbar spinal stenosis, status post decompression and fusion. Active. 4. Medication-related encephalopathy, new and active. PLAN: -discharge to retirement facility. Time-Based Coding :: [TOTAL MINUTES] spent with patient and on the chart (including review of chart, obtaining history, exam, reviewing outside data, placing orders, documenting exam and treatment plan, and counseling patient) on [DATE]. Quality VTE Deep Vein Thrombosis/Pulmonary Embolism Present on Admission: No
--- NOTE | 2024-03-25 11:10 | PC.NURSE ---
Pt discharged to [facility] at 1100, escorted off floor in wheelchair accompanied by facility designee. Discharge teaching included in packet for facility. Report called to Samanta ([phone]) at 1100. All belongings left with patient.
== END 2024-03-25 11:13 | DRG 426 ==
PROVIDERS: Hospitalist; Admitting Provider Orthopaedic Surgery Orthopaedic Surgery of the Spine; PCP Family Medicine; Referring Provider Orthopaedic Surgery Orthopaedic Surgery of the Spine; Visit Provider Orthopaedic Surgery Orthopaedic Surgery of the Spine
PROC: 0SG00AJ Fusion of Lumbar Vertebral Joint with Interbody Fusion Device, Posterior Approach, Anterior Column, Open Approach (ICD-10-PCS; principal; 2024-03-21 11:45)
DX: M43.16 Spondylolisthesis, lumbar region (principal); G92.8 Other toxic encephalopathy; M48.061 Spinal stenosis, lumbar region without neurogenic claudication; M43.17 Spondylolisthesis, lumbosacral region; M54.16 Radiculopathy, lumbar region; M96.1 Postlaminectomy syndrome, not elsewhere classified; I10 Essential (primary) hypertension; F32.A Depression, unspecified; T50.905A Adverse effect of unspecified drugs, medicaments and biological substances, initial encounter; K21.9 Gastro-esophageal reflux disease without esophagitis; R00.0 Tachycardia, unspecified
CPT/HCPCS: 36415; 72100; 76000; 80048; 82962; 85014; 85018; 94762; 97116; 97129; 97162; 97165; 97530; 97535; C9290; J0171; J0690; J1171; J2405; J2704; J3010; J3410